=== PATIENT | female | born 1955 | race Caucasian/White ===

== ENCOUNTER 2020-02-26 17:58 | Emergency (ER) | payer MEDICARE, MEDICAID, SELFPAY ==
--- NOTE | 2020-02-26 | ECG_ITS ---
Test Reason : WADE Blood Pressure : / mmHG Vent. Rate : 063 BPM Atrial Rate : 063 BPM P-R Int : 176 ms QRS Dur : 072 ms QT Int : 420 ms P-R-T Axes : 000 065 -26 degrees QTc Int : 429 ms Poor data quality Sinus rhythm Low voltage QRS RSR' or QR pattern in V1 suggests right ventricular conduction delay ST depression in Anterior leads Abnormal ECG When compared with ECG of 29-AUG-2006 08:35, Significant changes have occurred Referred By: Ninfa Betancur Electronically Signed By:WALESKA DEVLIN MD
[2020-02-26 18:06] VITALS: BP 80/50; PULSE 79; RESP 24; TEMP 35.7; O2SAT 98; BMI 48.2
[2020-02-26 18:40] VITALS: BP 88/38; PULSE 61; RESP 14; O2SAT 97
[2020-02-26] MEDS: 0.9 % Sodium Chloride 1,000 ML 999 ML IVCONT (18:45)
[2020-02-26 18:52] VITALS: BP 92/53
--- NOTE | 2020-02-26 18:58 | CT_ITS ---
EXAMINATION: CT ABDOMEN AND PELVIS WITHOUT CONTRAST CLINICAL INFORMATION: Back pain with leg weakness. COMPARISON: CT abdomen and pelvis December 2017. Abdominal ultrasound March 2018. TECHNIQUE: Multidetector volumetric imaging was performed from the superior aspect of the liver through the pubic symphysis. Sagittal and coronal reformatted images were obtained on the technologist's workstation. This CT examination was performed using dose optimization techniques as appropriate, variously including the following: *Automated exposure control. *Adjustment of mA and/or kV according to patient size (this includes techniques or standardized protocols for targeted exams where dose is matched to indication/reason for exam; i.e. extremities or head). *Use of iterative reconstruction technique. DLP: 1358 mGy-cm FINDINGS: LUNG BASES: Minimal scarring lingula, unchanged. LIVER, GALLBLADDER, AND BILIARY TREE: The liver is normal in size, shape, and attenuation. No focal hepatic lesion or biliary ductal dilatation is present. Status post cholecystectomy. PANCREAS: Unremarkable. SPLEEN: Unremarkable. ADRENAL GLANDS: Unremarkable. KIDNEYS AND URETERS: The kidneys are normal in size, shape, and attenuation. No hydronephrosis, hydroureter, or calculi seen. No perinephric stranding. BLADDER: Unremarkable. GASTROINTESTINAL TRACT: Appendix normal. Scattered diverticulosis without diverticulitis. Small bowel normal. Stomach normal. ABDOMINAL WALL: There is an anterior abdominal wall hernia at the right of midline as before containing fat and loops of small bowel which are not obstructed, unchanged compared to prior. The defect measures 4.5 cm transverse and 4 cm craniocaudal. Additionally, there is a localized collection of fluid along the distal anterior abdominal wall just distal to level of the hernia, unchanged compared to prior, measuring 9.5 cm transverse, up to 3.3 cm AP and extending 9.2 cm craniocaudal. LYMPH NODES: Normal. VASCULAR: Moderate calcific atherosclerotic disease, unchanged. PELVIC VISCERA: Unremarkable. OSSEOUS STRUCTURES: Stable moderate multilevel spondylosis of the lumbosacral spine with degenerative grade 1 anterolisthesis at L4-L5 where there is mild degenerative disc disease and severe bilateral facet arthrosis at L4-L5 as well as L3-L4. CT/CT abdomen pelvis wo con IMPRESSION: 1. No change compared with December 2017. 2. Stable moderate multilevel spondylosis of lumbosacral spine. 3. Status post cholecystectomy. 4. Stable anterior abdominal wall hernia containing fat and non-obstructed small bowel loops. 5. Stable fluid collection embedded within the distal anterior abdominal wall just distal to the level of the hernia.
--- NOTE | 2020-02-26 18:58 | ED_ITS ---
HPI - Back Pain/Injury General Chief Complaint: Back Pain/Injury Stated Complaint: BACK PAIN Time Seen by Provider: 02/26/20 19:09 Source: patient Mode of arrival: ambulatory Limitations: no limitations History of Present Illness HPI Narrative: 64-year-old female with past medical history of psoriasis, ventral hernia, fibromyalgia, obstructive sleep apnea uses CPAP, urinary stress incontinence, bilateral osteoarthritis of the knees, hyperlipidemia, and hypertension presents with 01/06 lower back pain that radiates into the pelvis, groin, and left leg. She states that she has been unable to sleep for the past several days. She is short of breath, and states to feel dizzy. She denies chest pain and pressure, palpitations, abdominal distention, dysuria, hematuria, bowel and bladder incontinence, symptoms indicating cauda equina, increased edema, fevers and chills. Related Data Home Medications Medication Instructions Recorded Confirmed atenolol 50 mg tablet 25 mg PO BID 01/17/20 02/26/20 atorvastatin 40 mg tablet 40 mg PO DAILY 01/17/20 02/26/20 cetirizine 10 mg tablet 10 mg PO DAILY PRN 01/17/20 02/26/20 cholecalciferol (vitamin D3) 1,250 1,250 mcg PO 2XW 01/17/20 02/26/20 mcg (50,000 unit) capsule hydrochlorothiazide 25 mg tablet 25 mg PO DAILY 01/17/20 02/26/20 lisinopril 40 mg tablet 40 mg PO DAILY 01/17/20 02/26/20 aspirin 81 mg PO DAILY 02/26/20 02/26/20 Previous Rx's Medication Instructions Recorded ibuprofen 800 mg tablet 800 mg PO .qd PRN #30 tab 01/17/20 Allergies Allergy/AdvReac Type Severity Reaction Status Date / Time acetaminophen [Tylenol] AdvReac Unknown diarrhea Verified 01/17/20 13:02 Cortisone AdvReac Unknown leg turned Verified 01/17/20 13:02 black naproxen [From NAPROSYN] AdvReac Unknown DEPRESSION , Verified 01/17/20 13:02 severe depression, extreme fatgue and drepression Review of Systems Review of Systems: Constitutional: No Weight loss, No Fever, No Chills, ENT/Mouth: No Hearing loss, No Ear Pain, No Nasal Congestion, No Sinus Pain, No Hoarseness, No sore throat, No Rhinorrhea, No Swallowing Difficulty Cardiovascular: No Chest Pain, Positive SOB Respiratory: No Cough, No Dyspnea Gastrointestinal: No Nausea, No Vomiting, No Diarrhea, positive abdominal Pain, No Hematochezia, No Melena Genitourinary: No Dysuria, No Urinary Frequency, No Hematuria, No Urinary Incontinence, Musculoskeletal: positive back pain, positive left leg pain Skin: No Skin Lesions, No rash Neuro: No Weakness, No Numbness, No Paresthesias, no loss of bowel or bladder incontinence, no saddle anesthesia Yes all other systems are reviewed and are negative [facility] Past Medical History Attestation statement: The following information was validated with the patient. Medical History Adenomyosis of uterus Environmental and seasonal allergies Essential hypertension Fibromyalgia Hyperlipidemia CHAS on CPAP Osteoarthritis of knees, bilateral Psoriasis Urinary, incontinence, stress female Ventral hernia Surgical History History of laparoscopic cholecystectomy History of total abdominal hysterectomy and bilateral salpingo-oophorectomy Torn ACL Family History Family History Father CAD (coronary artery disease) CVD (cardiovascular disease) Stroke Mother History of CVA (cerebrovascular accident) Brother No problems noted. Brother No problems noted. Son No problems noted. Social History Social History Alcohol intake: never Smoking Status: Current some day smoker Smoked in Last 30 Days: No Use of substances other than those prescribed or required for medical reasons: No Advance Directives: No Advance Directives Information Provided: Yes Physical Exam Vital Signs: Vital Signs: Last Vital Signs Temp 98.4 F 02/27/20 00:00 Pulse 100 02/27/20 04:32 Resp 18 02/27/20 04:32 BP 139/89 02/27/20 04:32 Pulse Ox 96 02/27/20 04:32 Body Mass Index 48.2 Appearance: Alert. Oriented X3. moderate distress. tachypneic, hypotensive Eyes: Pupils equal, round and reactive to light. ENT: Pharynx normal. Neck: Normal inspection. Neck supple. CVS: Normal heart rate and rhythm. Pulses normal. Respiratory: No respiratory distress. Breath sounds normal. Abdomen: Soft and nontender. morbidly obese Skin: Skin warm and dry. Normal skin color. Normal skin turgor. Extremities: No lower extremity edema. Neuro: No motor deficit. No sensory deficit. Course Course Course Narrative: 64-year-old female presents with lower back pain, groin pain and sciatica, has been unable to sleep for the past several days. upon pres entation to the emergency department she is hypotensive, tachypneic, and has a temperature of 96.2?. Repeat temperature at bedside 98.3 oral, and respiration rate returned to 18 after rest. patient does have a morbidly obese body habitus and was physically exerting herself And is in 10/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 Troponin is 10.1, we will repeat this. Urinalysis is negative for nitrites however has leukocyte esterase, white blood cells, and bacteria. We will treat with ceftriaxone, and order lactic acid and cultures. plan of care is for Case Management, certified social workers in health care and physical therapy. patient does not feel like she can manage herself at home. MDM - Back Pain/Injury Differential Diagnosis Differential diagnosis: Likely lumbar radiculopathy, sciatica, strain of lumbar region, renal colic, pyelonephritis, thoracic back pain, AAA and discitis Medical Records Attestation: I reviewed the patient's medical records. Lab Data Attestation: I reviewed the patient's lab results. Result diagrams: 02/26/20 18:55 02/26/20 18:55 Labs: Lab Results 02/26/20 02/26/20 02/26/20 Range/Units 18:55 18:55 18:55 WBC 10.4 (4.8-10.8) X10*3/uL RBC 4.48 (4.20-5.50) X10*6/uL Hgb 13.5 (12.0-16.0) g/dl Hct 40.2 (37-47) % MCV 89.7 (80-98) fL MCH 30.1 (27.0-33.0) pg MCHC 33.6 (31.0-35.0) g/dl RDW 13.5 (11.0-16.0) % Plt Count 214 (160-400) X10*3/uL MPV 9.5 (9.4-12.3) fL Immature Gran % (Auto) 0.2 (0.0-0.4) % Neut % (Auto) 48.7 (45-73) % Lymph % (Auto) 39.8 (20-40) % [place] % (Auto) 7.7 (2-11) % Eos % (Auto) 3.1 (0-4) % Baso % (Auto) 0.5 (0-2) % Lymph # (Auto) 4.2 (1.2-4.9) X10*3/uL [place] # (Auto) 0.8 (0.1-1.2) X10*3/uL Eos # (Auto) 0.3 (0.0-0.4) X10*3/uL Baso # (Auto) 0.1 (0.0-0.2) X10*3/uL Abs Immat Gran (auto) 0.02 (0.00-0.03) X10*3/uL Absolute Neuts (auto) 5.1 (2.0-8.3) X10*3/uL Absolute Nucleated RBC 0.000 (0.0-0.012) X10*3/uL Nucleated RBC % (auto) 0.0 (0.0-0.2) /100WBC Hold Blue Top SEE NOTE Sodium 136 (135-145) mmol/L Potassium 3.7 (3.3-5.1) mmol/l Chloride 98 (96-108) mmol/L Carbon Dioxide 25 (22-29) mmol/L Anion Gap 17 (12-20) BUN 18 H (9-16) mg/dL Creatinine 1.10 (0.5-1.4) mg/dL Estim Creat Clear Calc 70.8 Estimated GFR 50 Random Glucose 99 (60-115) mg/dL Lactic Acid (0.5-2.0) mmol/L Calcium 8.9 (8.4-10.2) mg/dL Total Bilirubin 0.8 (0.0-1.0) mg/dL AST 20 (5-31) U/L ALT 18 (0-31) U/L Alkaline Phosphatase 85 (39-117) U/L Troponin I High Sens (<3.5-17.0) ng/L B-Natriuretic Peptide (<100) pg/mL Total Protein 6.5 (6.5-8.0) g/dL Albumin 3.6 (3.5-5.0) g/dL Urine Color Urine Appearance Urine pH (5.0-8.0) Ur Specific [place] (1.005-1.025) Urine Protein (NEG-TRACE) MG/DL Urine Glucose (UA) (NEG) MG/DL Urine Ketones (NEG) MG/DL Urine Blood (NEG) Urine Nitrite (NEG) Ur Leukocyte Esterase (NEG) Urine RBC (0) /HPF Urine WBC (0-4) /HPF Ur Squamous Epith Cells /LPF Urine Bacteria /LPF 02/26/20 02/26/20 02/27/20 Range/Units 18:55 21:07 03:01 WBC (4.8-10.8) X10*3/uL RBC (4.20-5.50) X10*6/uL Hgb (12.0-16.0) g/dl Hct (37-47) % MCV (80-98) fL MCH (27.0-33.0) pg MCHC (31.0-35.0) g/dl RDW (11.0-16.0) % Plt Count (160-400) X10*3/uL MPV (9.4-12.3) fL Immature Gran % (Auto) (0.0-0.4) % Neut % (Auto) (45-73) % Lymph % (Auto) (20-40) % [place] % (Auto) (2-11) % Eos % (Auto) (0-4) % Baso % (Auto) (0-2) % Lymph # (Auto) (1.2-4.9) X10*3/uL [place] # (Auto) (0.1-1.2) X10*3/uL Eos # (Auto) (0.0-0.4) X10*3/uL Baso # (Auto) (0.0-0.2) X10*3/uL Abs Immat Gran (auto) (0.00-0.03) X10*3/uL Absolute Neuts (auto) (2.0-8.3) X10*3/uL Absolute Nucleated RBC (0.0-0.012) X10*3/uL Nucleated RBC % (auto) (0.0-0.2) /100WBC Hold Blue Top Sodium (135-145) mmol/L Potassium (3.3-5.1) mmol/l Chloride (96-108) mmol/L Carbon Dioxide (22-29) mmol/L Anion Gap (12-20) BUN (9-16) mg/dL Creatinine (0.5-1.4) mg/dL Estim Creat Clear Calc Estimated GFR Random Glucose (60-115) mg/dL Lactic Acid (0.5-2.0) mmol/L Calcium (8.4-10.2) mg/dL Total Bilirubin (0.0-1.0) mg/dL AST (5-31) U/L ALT (0-31) U/L Alkaline Phosphatase (39-117) U/L Troponin I High Sens 10.1 7.6 (<3.5-17.0) ng/L B-Natriuretic Peptide 50 (<100) pg/mL Total Protein (6.5-8.0) g/dL Albumin (3.5-5.0) g/dL Urine Color YELLOW Urine Appearance CLEAR Urine pH 5.5 (5.0-8.0) Ur Specific [place] 1.020 (1.005-1.025) Urine Protein NEG (NEG-TRACE) MG/DL Urine Glucose (UA) NEG (NEG) MG/DL Urine Ketones NEG (NEG) MG/DL Urine Blood NEG (NEG) Urine Nitrite NEG (NEG) Ur Leukocyte Esterase TRACE H (NEG) Urine RBC 0-2 (0) /HPF Urine WBC 5-9 H (0-4) /HPF Ur Squamous Epith Cells 1+ /LPF Urine Bacteria 3+ /LPF 02/27/20 Range/Units 03:01 WBC (4.8-10.8) X10*3/uL RBC (4.20-5.50) X10*6/uL Hgb (12.0-16.0) g/dl Hct (37-47) % MCV (80-98) fL MCH (27.0-33.0) pg MCHC (31.0-35.0) g/dl RDW (11.0-16.0) % Plt Count (160-400) X10*3/uL MPV (9.4-12.3) fL Immature Gran % (Auto) (0.0-0.4) % Neut % (Auto) (45-73) % Lymph % (Auto) (20-40) % [place] % (Auto) (2-11) % Eos % (Auto) (0-4) % Baso % (Auto) (0-2) % Lymph # (Auto) (1.2-4.9) X10*3/uL [place] # (Auto) (0.1-1.2) X10*3/uL Eos # (Auto) (0.0-0.4) X10*3/uL Baso # (Auto) (0.0-0.2) X10*3/uL Abs Immat Gran (auto) (0.00-0.03) X10*3/uL Absolute Neuts (auto) (2.0-8.3) X10*3/uL Absolute Nucleated RBC (0.0-0.012) X10*3/uL Nucleated RBC % (auto) (0.0-0.2) /100WBC Hold Blue Top Sodium (135-145) mmol/L Potassium (3.3-5.1) mmol/l Chloride (96-108) mmol/L Carbon Dioxide (22-29) mmol/L Anion Gap (12-20) BUN (9-16) mg/dL Creatinine (0.5-1.4) mg/dL Estim Creat Clear Calc Estimated GFR Random Glucose (60-115) mg/dL Lactic Acid 1.1 (0.5-2.0) mmol/L Calcium (8.4-10.2) mg/dL Total Bilirubin (0.0-1.0) mg/dL AST (5-31) U/L ALT (0-31) U/L Alkaline Phosphatase (39-117) U/L Troponin I High Sens (<3.5-17.0) ng/L B-Natriuretic Peptide (<100) pg/mL Total Protein (6.5-8.0) g/dL Albumin (3.5-5.0) g/dL Urine Color Urine Appearance Urine pH (5.0-8.0) Ur Specific [place] (1.005-1.025) Urine Protein (NEG-TRACE) MG/DL Urine Glucose (UA) (NEG) MG/DL Urine Ketones (NEG) MG/DL Urine Blood (NEG) Urine Nitrite (NEG) Ur Leukocyte Esterase (NEG) Urine RBC (0) /HPF Urine WBC (0-4) /HPF Ur Squamous Epith Cells /LPF Urine Bacteria /LPF Imaging Data CT scan - abdomen: Attestation: I personally reviewed and interpreted this imaging study as follows: Radiologist's impression: FINDINGS: LUNG BASES: Minimal scarring lingula, unchanged. LIVER, GALLBLADDER, AND BILIARY TREE: The liver is normal in size, shape, and attenuation. No focal hepatic lesion or biliary ductal dilatation is present. Status post cholecystectomy. PANCREAS: Unremarkable. SPLEEN: Unremarkable. ADRENAL GLANDS: Unremarkable. KIDNEYS AND URETERS: The kidneys are normal in size, shape, and attenuation. No hydronephrosis, hydroureter, or calculi seen. No perinephric stranding. BLADDER: Unremarkable. GASTROINTESTINAL TRACT: Appendix normal. Scattered diverticulosis without diverticulitis. Small bowel normal. Stomach normal. ABDOMINAL WALL: There is an anterior abdominal wall hernia at the right of midline as before containing fat and loops of small bowel which are not obstructed, unchanged compared to prior. The defect measures 4.5 cm transverse and 4 cm craniocaudal. Additionally, there is a localized collection of fluid along the distal anterior abdominal wall just distal to level of the hernia, unchanged compared to prior, measuring 9.5 cm transverse, up to 3.3 cm AP and extending 9.2 cm craniocaudal. LYMPH NODES: Normal. VASCULAR: Moderate calcific atherosclerotic disease, unchanged. PELVIC VISCERA: Unremarkable. OSSEOUS STRUCTURES: Stable moderate multilevel spondylosis of the lumbosacral spine with degenerative grade 1 anterolisthesis at L4-L5 where there is mild degenerative disc disease and severe bilateral facet arthrosis at L4-L5 as well as L3-L4. CT/CT abdomen pelvis wo con IMPRESSION: 1. No change compared with December 2017. 2. Stable moderate multilevel spondylosis of lumbosacral spine. 3. Status post cholecystectomy. 4. Stable anterior abdominal wall hernia containing fat and non-obstructed small bowel loops. 5. Stable fluid collection embedded within the distal anterior abdominal wall just distal to the level of the hernia. ECG Data Attestation: I personally reviewed and interpreted this ECG as follows: ECG interpretation date: 02/26/20 ECG interpretation time: 19:30 Prior ECG tracings: not available for review Interpretation: ventricular rate 63, p.r. interval 176, QRS duration 72, QT 420, QTC 429 sinus rhythm with fusion complexes low-voltage QRS, cannot rule out anterior infarct age undetermined, significant changes have occurred since August 292006. Critical Care Time Critical Care Time Critical Care Time: Yes Total Critical Care Time: 45 Attestation: I have personally provided critical care time exclusive of time spent on separately billable procedures. Time includes review of laboratory data, radiology results, discussion with consultants, and monitoring for potential decompensation. Interventions were performed as documented. Discharge Plan Discharge Prescriptions: No Action aspirin 81 mg Tablet 81 mg PO DAILY RF: 0 atenolol 50 mg tablet 25 mg PO BID RF: 0 hydrochlorothiazide 25 mg tablet 25 mg PO DAILY RF: 0 atorvastatin 40 mg tablet 40 mg PO DAILY RF: 0 lisinopril 40 mg tablet 40 mg PO DAILY RF: 0 cetirizine 10 mg tablet 10 mg PO DAILY PRN (Reason: Cold Symptoms) RF: 0 cholecalciferol (vitamin D3) 1,250 mcg (50,000 unit) capsule 1,250 mcg PO 2XW RF: 0 ibuprofen 800 mg tablet 800 mg PO .qd PRN (Reason: pain) Qty: 30 RF: 3
[2020-02-26 19:02] LABS: MANUAL DIFF FLAG NO
[2020-02-26 19:04] LABS: Basophils Absolute Auto 0.1 X10*3/uL (0.0-0.2); Basophils Percent Auto 0.5 % (0-2); Eosinophils Absolute Auto 0.3 X10*3/uL (0.0-0.4); Eosinophils Percent Auto 3.1 % (0-4); Hematocrit 40.2 % (37-47); Hemoglobin 13.5 g/dl (12.0-16.0); Imm Gran Abs Auto 0.02 X10*3/uL (0.00-0.03); Imm Gran Pct Auto 0.2 % (0.0-0.4); Lymphocytes Absolute Auto 4.2 X10*3/uL (1.2-4.9); Lymphocytes Percent Auto 39.8 % (20-40); Mean Corpuscular HGB Conc 33.6 g/dl (31.0-35.0); Mean Corpuscular Hemoglobin 30.1 pg (27.0-33.0); Mean Corpuscular Volume 89.7 fL (80-98); Mean Platelet Volume 9.5 fL (9.4-12.3); Monocytes Absolute Auto 0.8 X10*3/uL (0.1-1.2); Monocytes Percent Auto 7.7 % (2-11); Neutrophils Absolute Auto 5.1 X10*3/uL (2.0-8.3); Neutrophils Percent Auto 48.7 % (45-73); Platelet Count 214 X10*3/uL (160-400); Red Blood Count 4.48 X10*6/uL (4.20-5.50); Red Cell Distribution Width 13.5 % (11.0-16.0); White Blood Count 10.4 X10*3/uL (4.8-10.8)
[2020-02-26 19:29] LABS: Alanine Aminotransferase 18 U/L (0-31); Albumin Level 3.6 g/dL (3.5-5.0); Alkaline Phosphatase 85 U/L (39-117); Anion Gap 17 (12-20); Aspartate Amino Transferase 20 U/L (5-31); Bilirubin Total 0.8 mg/dL (0.0-1.0); Blood Urea Nitrogen 18 mg/dL (9-16); Calcium 8.9 mg/dL (8.4-10.2); Carbon Dioxide 25 mmol/L (22-29); Chloride 98 mmol/L (96-108); Creatinine Clr Calc Pharmacy 70.8; Estimated Glomerular Filt Rate 50; Glucose Random 99 mg/dL (60-115); Potassium 3.7 mmol/l (3.3-5.1); Sodium 136 mmol/L (135-145); Total Protein 6.5 g/dL (6.5-8.0)
[2020-02-26 19:31] LABS: B Type Natriuretic Peptide 50 pg/mL (<100); Troponin-I High Sensitivity 10.1 ng/L (<3.5-17.0)
[2020-02-26] MEDS: Ketorolac Tromethamine 15 MG/ML VIAL IVPUSH (19:59)
[2020-02-26 21:07] VITALS: BP 110/45; PULSE 74; RESP 22; TEMP 37.2; O2SAT 98
[2020-02-26 21:19] LABS: Glucose Urine UA NEG (NEG); Leukocyte Esterase Urine TRACE (NEG); Nitrite Urine NEG (NEG); PH 5.5 (5.0-8.0); Urine Blood NEG (NEG); Urine Ketones NEG (NEG); Urine Protein NEG (NEG-TRACE)
[2020-02-26 21:20] LABS: Appearance Urine CLEAR; Color Urine YELLOW
[2020-02-26] MEDS: oxyCODONE HCl Immed Release 5 MG TABLET PO (22:00)
--- NOTE | 2020-02-26 22:36 | PC.NURSE ---
Pt continues to report back pain w/ little relief, offered case management, pt currently discussing w/ son.
[2020-02-26 22:37] VITALS: BP 107/76; PULSE 87; RESP 16; O2SAT 99
[2020-02-26 22:44] LABS: Bacteria Urine 3+ /LPF; RBC Urine 0-2 /HPF (0); Squamous Epithelial Cell Urine 1+ /LPF
[2020-02-26] MEDS: Cyclobenzaprine HCl 10 MG TABLET PO (23:09)
[2020-02-27] VITALS: BP 99/57; PULSE 82; RESP 19; TEMP 36.9; O2SAT 96
[2020-02-27 03:27] LABS: Lactic Acid 1.1 mmol/L (0.5-2.0)
[2020-02-27] MEDS: cefTRIAXone sodium 1 GM in 0.9 % Sodium Chloride 50 ML IV (03:31)
[2020-02-27] MEDS: 0.9 % Sodium Chloride 1,000 ML 999 ML IVCONT (03:31)
[2020-02-27] MEDS: oxyCODONE HCl Immed Release 5 MG TABLET PO (03:31)
[2020-02-27 03:38] LABS: Troponin-I High Sensitivity 7.6 ng/L (<3.5-17.0)
--- NOTE | 2020-02-27 03:51 | PC.NURSE ---
pt able to stand and pivot to commode on her own. pt still experiencing lower back pain. pt transferred to a hospital bed for comfort.
[2020-02-27 04:32] VITALS: BP 139/89; PULSE 100; RESP 18; O2SAT 96
--- NOTE | 2020-02-27 07:35 | PC.NURSE ---
pt voided in the commode earlier, physical therapy at the bedside.
[2020-02-27 07:51] VITALS: BP 94/54; PULSE 85; RESP 17; TEMP 36.7; O2SAT 95
[2020-02-27 08:24] VITALS: BP 94/54; PULSE 85; O2SAT 95
[2020-02-27 08:26] LABS: COVID-19 Test Negative (Negative); IDNOW Serial# 9DD0AD1C
--- NOTE | 2020-02-27 09:12 | MHC.CM.ED ---
Received case management consult overnight. Patient came to the ER due to back pain. Physical therapy eval completed. Home therapy is recommended. Met with patient in regards to discharge planning. Patient lives with her son, ambualtes with a walker and has a CPAP through [employer]. PCP verified. Patient has a copy of her HCP at her PCP's office and will attempt to obtain a copy. Referral to [facility] made at patient's request. Patient's son will transport her home. Continue to monitor for d/c needs.
[2020-02-27 09:42] VITALS: BP 116/77; PULSE 90; RESP 17; TEMP 36.8; O2SAT 94
[2020-02-27 09:50] VITALS: BP 116/77; PULSE 90
[2020-02-27] MEDS: atenoloL 50 MG TABLET 25 MG PO (09:50)
[2020-02-27] MEDS: hydroCHLOROthiazide 25 MG TABLET PO (09:52)
[2020-02-27] MEDS: Atorvastatin Calcium 40 MG TABLET PO (09:52)
[2020-02-27] MEDS: traMADoL HCL 50 MG TABLET PO (09:52)
[2020-02-27] MEDS: Nitrofurantoin Monohyd/M-Cryst 100 MG CAPSULE PO (09:53)
== END 2020-02-27 10:15 | disposition home or self-care (01) ==
PROVIDERS: Internal Medicine; Nurse Practitioner Family; Emergency Provider Emergency Medicine; PCP Internal Medicine
DX: M54.5 Low back pain (principal); M79.605 Pain in left leg; M79.7 Fibromyalgia; R10.2 Pelvic and perineal pain; R42 Dizziness and giddiness; Z20.828 Contact with and (suspected) exposure to other viral communicable diseases; Z79.899 Other long term (current) drug therapy; F17.200 Nicotine dependence, unspecified, uncomplicated; Z71.6 Tobacco abuse counseling
CPT/HCPCS: 36415; 74176; 80053; 81001; 83605; 83880; 84484; 85025; 87040; 87086; 87088; 87186; 87635; 93005; 96361; 96365; 96375; 97161; 99285; 99291; J0696; J1885

== ENCOUNTER 2020-02-27 11:12 | Emergency (ER) | payer MEDICARE, MEDICAID, SELFPAY ==
--- NOTE | 2020-02-27 11:19 | XR_ITS ---
EXAMINATION: XR HAND WRIST, LEFT CLINICAL INFORMATION: Fall, trauma, pain COMPARISON: None TECHNIQUE: The left hand and wrist are imaged together and 3 large [id number] images. A navicular view of the left wrist is also included for a total of 4 views. FINDINGS: There is a transverse hairline fracture distal radial metaphysis. No significant angulation or displacement. No dislocation. The ulnar variance is neutral. The distal ulnar and carpal and hand appear intact. There are degenerative changes first carpometacarpal joint and first MCP joint. XR/XR hand wrist LT IMPRESSION: Transverse fracture distal radial metaphysis. No dislocation.
--- NOTE | 2020-02-27 11:25 | ED.FALL ---
HPI - Fall General Chief Complaint: Fall <Kathy Mariee NP - Last Filed: 02/27/20 17:10> Stated Complaint: weakness,fall,left hand lac,d/c this am <Kathy Mariee NP - Last Filed: 02/27/20 17:10> Time Seen by Provider: 02/27/20 11:14 <Kathy Mariee NP - Last Filed: 02/27/20 17:10> Source: EMS <Kathy Mariee NP - Last Filed: 02/27/20 17:10> Mode of arrival: EMS <Kathy Mariee NP - Last Filed: 02/27/20 17:10> Limitations: no limitations <Kathy Mariee NP - Last Filed: 02/27/20 17:10> History of Present Illness HPI Narrative: 64-year-old female with a past medical history of chronic back pain, fibromyalgia, high cholesterol, obstructive sleep apnea, hypertension, osteoarthritis here with fall. Of note the patient was seen here last evening and discharged home after being seen for acute on chronic low back pain and UTI. She was seen by Physical therapy and was cleared for discharge. Patient tells me she got to her house and tried to walk up the steps to her door and due to the pain she fell off balance and fell catching herself with her left hand. She tells me when she lifts her legs she feels pain in her back. She denies hitting her head or loss of consciousness. She tells me that her left arm caught her. She does have a laceration to the left arm. Her last tetanus was 2 years ago. No chest pain, abdominal pain, neck pain, headache. <Kathy Mariee NP - Last Filed: 02/27/20 17:10> MD complaint: fall <MYRA Sarmiento Last Filed: 02/27/20 17:10> Onset (ago): minute(s) <MYRA Sarmiento Last Filed: 02/27/20 17:10> Fall from: standing <Kathy Mariee NP - Last Filed: 02/27/20 17:10> Fall witnessed: no <Kathy Mariee NP - Last Filed: 02/27/20 17:10> Place fall occurred: home <Kathy Mariee NP - Last Filed: 02/27/20 17:10> Loss of consciousness: none <Kathy Mariee NP - Last Filed: 02/27/20 17:10> Prolonged down time: no <Kathy Mariee NP - Last Filed: 02/27/20 17:10> Symptoms prior to fall: none <Kathy Mariee NP - Last Filed: 02/27/20 17:10> Context: other ( Lost balance) <Kathy Mariee NP - Last Filed: 02/27/20 17:10> Location of injury - extremities: left: hand ( wrist) <Kathy Mariee NP - Last Filed: 02/27/20 17:10> Severity: mild <Kathy Mariee NP - Last Filed: 02/27/20 17:10> Associated symptoms (after fall): denies <Kathy Mariee NP - Last Filed: 02/27/20 17:10> Related Data Home Medications: Home Medications Medication Instructions Recorded Confirmed atenolol 50 mg tablet 25 mg PO BID 01/17/20 02/27/20 atorvastatin 40 mg tablet 40 mg PO DAILY 01/17/20 02/27/20 cetirizine 10 mg tablet 10 mg PO DAILY PRN 01/17/20 02/27/20 cholecalciferol (vitamin D3) 1,250 1,250 mcg PO 2XW 01/17/20 02/27/20 mcg (50,000 unit) capsule hydrochlorothiazide 25 mg tablet 25 mg PO DAILY 01/17/20 02/27/20 lisinopril 40 mg tablet 40 mg PO DAILY 01/17/20 02/27/20 aspirin 81 mg PO DAILY 02/26/20 02/27/20 ibuprofen 800 mg PO DAILY PRN 02/27/20 02/27/20 Previous Rx's Medication Instructions Recorded cephalexin 500 mg PO BID #14 cap 02/27/20 cyclobenzaprine 5 mg PO TID PRN #10 tab 02/27/20 <Kathy Mariee NP - Last Filed: 02/27/20 17:10> Allergies/Adverse Reactions: Allergies Allergy/AdvReac Type Severity Reaction Status Date / Time acetaminophen [Tylenol] AdvReac Unknown diarrhea Verified 01/17/20 13:02 Cortisone AdvReac Unknown leg turned Verified 01/17/20 13:02 black naproxen [From NAPROSYN] AdvReac Unknown DEPRESSION , Verified 01/17/20 13:02 severe depression, extreme fatgue and drepression <Kathy Mariee NP - Last Filed: 02/27/20 17:10> Review of Systems Review of Systems: Yes all other systems are reviewed and are negative <Kathy Mariee NP - Last Filed: 02/27/20 17:10> Constitutional: Constitutional: Reports no additional constitutional complaints, Denies body ache(s), Denies chills, Denies fever(s), Denies headache(s) and Denies weakness <Kathy Mariee NP - Last Filed: 02/27/20 17:10> Eyes: Eyes: Reports no additional eye complaints and Denies change in vision <Kathy Mariee NP - Last Filed: 02/27/20 17:10> ENT: Reports system reviewed and no additional complaints, except as documented, Denies dizziness, Denies headache(s), Denies nasal congestion, Denies nasal discharge and Denies neck pain <Kathy Mariee NP - Last Filed: 02/27/20 17:10> Cardiovascular: Cardiovascular: Reports no additional cardiovascular complaints, Denies chest pain, Denies leg edema and Denies dyspnea <Kathy Mariee NP - Last Filed: 02/27/20 17:10> Respiratory: Respiratory: Reports no additional respiratory complaints, Denies cough and Denies dyspnea <Kathy Mariee NP - Last Filed: 02/27/20 17:10> Gastrointestinal: Gastrointestinal: Reports no additional gastrointestinal complaints, Denies abdominal pain, Denies diarrhea, Denies nausea and Denies vomiting <Kathy Mariee NP - Last Filed: 02/27/20 17:10> Genitourinary: Genitourinary: Reports no additional female genitourinary complaints and Denies urinary incontinence <Kathy Mariee NP - Last Filed: 02/27/20 17:10> Musculoskeletal: Musculoskeletal: Reports no additional musculoskeletal complaints, Denies back pain, Reports arthralgias, Denies joint swelling, Denies neck pain, Denies numbness and Denies tingling <Kathy Mariee NP - Last Filed: 02/27/20 17:10> Integumentary/Breasts: Skin/Breast: Reports system reviewed and no additional complaints, except as docu and Denies rash <Kathy Mariee NP - Last Filed: 02/27/20 17:10> Neurologic: Reports system reviewed and no additional complaints, except as documented, Denies Abnormal speech present, Denies dizziness, Denies headache(s), Denies numbness, Denies tingling and Denies weakness <Kathy Mariee NP - Last Filed: 02/27/20 17:10> PMFSH Past Medical History Attestation statement: The following information was validated with the patient. <Kathy Mariee NP - Last Filed: 02/27/20 17:10> Source: old records reviewed and nursing notes reviewed <Kathy Mariee NP - Last Filed: 02/27/20 17:10> Medical History: Medical History Adenomyosis of uterus Environmental and seasonal allergies Essential hypertension Fibromyalgia Hyperlipidemia CHAS on CPAP Osteoarthritis of knees, bilateral Psoriasis Urinary, incontinence, stress female Ventral hernia <Kathy Mariee NP - Last Filed: 02/27/20 17:10> Surgical History: Surgical History History of laparoscopic cholecystectomy History of total abdominal hysterectomy and bilateral salpingo-oophorectomy Torn ACL <Kathy Mariee NP - Last Filed: 02/27/20 17:10> Family History Family History: Family History Father CAD (coronary artery disease) CVD (cardiovascular disease) Stroke Mother History of CVA (cerebrovascular accident) Brother No problems noted. Brother No problems noted. Son No problems noted. <Kathy Mariee NP - Last Filed: 02/27/20 17:10> Social History Social History: Social History Alcohol intake: never Smoking Status: Former smoker Use of substances other than those prescribed or required for medical reasons: No Advance Directives: No Advance Directives Information Provided: Yes <Kathy Mariee NP - Last Filed: 02/27/20 17:10> Physical Exam Vital Signs: Vital Signs: Last Vital Signs Temp 98.4 F 02/27/20 16:04 Pulse 63 02/27/20 16:04 Resp 18 02/28/20 02:00 BP 96/48 L 02/27/20 16:39 Pulse Ox 94 02/27/20 16:04 Body Mass Index 48.2 <Kathy Mariee NP - Last Filed: 02/27/20 17:10> Vital Signs: Last Vital Signs Temp 98.4 F 02/27/20 16:04 Pulse 63 02/27/20 16:04 Resp 18 02/28/20 02:00 BP 96/48 L 02/27/20 16:39 Pulse Ox 94 02/27/20 16:04 Body Mass Index 48.2 <Carmen Palacios DO - Last Filed: 02/28/20 06:45> Const: General: cooperative, healthy appearing, comfortable and no acute distress <Kathy Mariee NP - Last Filed: 02/27/20 17:10> Orientation/consciousness: patient oriented x3 <Kathy Mariee NP - Last Filed: 02/27/20 17:10> Limitations: no limitations <Kathy Mariee NP - Last Filed: 02/27/20 17:10> HENMT: Head: Yes normal to inspection <Kathy Mariee NP - Last Filed: 02/27/20 17:10> Ears: hearing grossly normal bilaterally <Kathy Mariee NP - Last Filed: 02/27/20 17:10> General nose exam: Normal external nose present <Kathy Mariee NP - Last Filed: 02/27/20 17:10> Face and sinus: Yes normal facial exam <Kathy Mariee NP - Last Filed: 02/27/20 17:10> Mouth: Normal oral and palatal mucosa present <Kathy Mariee NP - Last Filed: 02/27/20 17:10> Throat: Yes posterior oropharynx normal <Kathy Mariee NP - Last Filed: 02/27/20 17:10> Eyes: General: appearance normal, both eyes and all related structures <Kathy Mariee NP - Last Filed: 02/27/20 17:10> Pupils: Equal, round and reactive pupils present <Kathy Mariee BREWERY TECHNICIAN - Last Filed: 02/27/20 17:10> Neck: Neck: Yes normal visual inspection <Kathy Mariee NP - Last Filed: 02/27/20 17:10> Chest: Chest palpation & inspection: normal inspection of the chest <Kathy Mariee NP - Last Filed: 02/27/20 17:10> Resp: Effort & Inspection: normal respiratory effort <Kathy Mariee NP - Last Filed: 02/27/20 17:10> Auscultation: clear to auscultation bilaterally <Kathy Mariee NP - Last Filed: 02/27/20 17:10> Cardio: Rate: regular rate <Kathy Mariee NP - Last Filed: 02/27/20 17:10> Rhythm: regular rhythm <Kathy Mariee NP - Last Filed: 02/27/20 17:10> Peripheral pulses: Peripheral pulses 2+ throughout <Kathy Mariee NP - Last Filed: 02/27/20 17:10> GI: Inspection: Yes normal to inspection <Kathy Mariee NP - Last Filed: 02/27/20 17:10> Palpation (GI): Soft to palpation and nontender <Kathy Mariee NP - Last Filed: 02/27/20 17:10> Auscultation: normal bowel sounds <Kathy Mariee NP - Last Filed: 02/27/20 17:10> Back/Spine/Pelvis: Thoracic/Lumbar Spine: thoracic and lumbar spine normal to inspection <Kathy Mariee NP - Last Filed: 02/27/20 17:10> Skin: General skin exam: no rashes or lesions noted <Kathy Mariee NP - Last Filed: 02/27/20 17:10> Neuro: General: patient oriented x3, no focal motor deficits and normal sensation to monofilament <Kathy Mariee NP - Last Filed: 02/27/20 17:10> Cranial nerves: Yes Equal, round and reactive pupils present <Kathy Mariee NP - Last Filed: 02/27/20 17:10> Cognition (Neuro): normal cognition <Kathy Mariee NP - Last Filed: 02/27/20 17:10> Speech: No Abnormal speech present <Kathy Mariee NP - Last Filed: 02/27/20 17:10> Gait exam (Neuro): Normal gait present <Kathy Mariee NP - Last Filed: 02/27/20 17:10> Motor exam (neuro): 5/5 motor strength present throughout <Kathy Mariee NP - Last Filed: 02/27/20 17:10> Extrem: Other: pain and swelling over the distal radius. Pain with flexion and extension of the wrist. Laceration noted to the left thenar which is approximately 1 in. NV intact distally. <Kathy Mariee NP - Last Filed: 02/27/20 17:10> General: Yes normal to inspection <Kathy Mariee NP - Last Filed: 02/27/20 17:10> Course Course Course Narrative: Will check imaging, wound repair. Will need physical therapy and case management evaluation. 1215- X-ray consistent with new transverse distal radial fracture. Patient had a wound repair done. She was placed in a splint. patient noted to have some low systolic blood pressure. She tells me she was seen by her primary care doctor 1 week ago and had her medications changed. She tells me has been running read low. She has no symptoms. She is alert and oriented. Will continue to monitor. Nursing aware to hold antihypertensives. 1700-sign out to Ninfa RENTERIA pending above. <Kathy Mariee NP - Last Filed: 02/27/20 17:10> Procedures Laceration Laceration 1: Site: hand ( left thenar) <Kathy Mariee NP - Last Filed: 02/27/20 17:10> Side (If applicable): left <Kathy Mariee NP - Last Filed: 02/27/20 17:10> Size (cm): 2.5 <Kathy Mariee NP - Last Filed: 02/27/20 17:10> Description: linear <Kathy Mariee NP - Last Filed: 02/27/20 17:10> Depth: simple, single layer <Kathy Mariee NP - Last Filed: 02/27/20 17:10> Local Anesthetic: lidocaine 2% <Kathy Mariee NP - Last Filed: 02/27/20 17:10> Pre-repair: wound explored and irrigated extensively <Kathy Mariee NP - Last Filed: 02/27/20 17:10> Skin layer closed with: nylon <Kathy Mariee NP - Last Filed: 02/27/20 17:10> Size (cm): 5-0 <Kathy Mariee NP - Last Filed: 02/27/20 17:10> Number of sutures: 3 <Kathy Mariee NP - Last Filed: 02/27/20 17:10> Technique: simple, interrupted <Kathy Mariee NP - Last Filed: 02/27/20 17:10> Orthopedic Splinting/Casting Injury #1: Side: left <Kathy Mariee NP - Last Filed: 02/27/20 17:10> Upper Extremity Injury Location: wrist <Kathy Mariee NP - Last Filed: 02/27/20 17:10> Upper Extremity Immobilizer: volar splint <Kathy Mariee NP - Last Filed: 02/27/20 17:10> MDM - Fall Medical Records Attestation: I reviewed the patient's medical records. <Kathy Mariee NP - Last Filed: 02/27/20 17:10> Lab Data Attestation: I reviewed the patient's lab results. <Kathy Mariee NP - Last Filed: 02/27/20 17:10> Imaging Data left wrist x-ray: Attestation: I personally reviewed and interpreted this imaging study as follows: <Kathy Mariee NP - Last Filed: 02/27/20 17:10> Radiologist's impression: EXAMINATION: XR HAND WRIST, LEFT CLINICAL INFORMATION: Fall, trauma, pain COMPARISON: None TECHNIQUE: The left hand and wrist are imaged together and 3 large [id number] images. A navicular view of the left wrist is also included for a total of 4 views. FINDINGS: There is a transverse hairline fracture distal radial metaphysis. No significant angulation or displacement. No dislocation. The ulnar variance is neutral. The distal ulnar and carpal and hand appear intact. There are degenerative changes first carpometacarpal joint and first MCP joint. XR/XR hand wrist LT IMPRESSION: Transverse fracture distal radial metaphysis. No dislocation. <Kathy Mariee NP - Last Filed: 02/27/20 17:10> Discharge Plan Discharge Clinical Impression: Laceration, Physical deconditioning, UTI (urinary tract infection) Distal radial fracture Qualifiers: Encounter type: initial encounter Fracture type: closed Fracture morphology: unspecified fracture morphology Laterality: left Qualified Code(s): S52.502A - Unspecified fracture of the lower end of left radius, initial encounter for closed fracture <Kathy Mariee NP - Last Filed: 02/27/20 17:10> Patient Disposition: Xfer SNF <Kathy Mariee NP - Last Filed: 02/27/20 17:10> Additional Instructions: Sutures out in 7-10 days Call orthopedics for a follow-up appointment. <MYRA Sarmiento Last Filed: 02/27/20 17:10> Prescriptions: No [facility] aspirin 81 mg Tablet 81 mg PO DAILY RF: 0 cephalexin 500 mg capsule 500 mg PO BID Qty: 14 RF: 0 cyclobenzaprine 5 mg tablet 5 mg PO TID PRN (Reason: muscle spasm) Qty: 10 RF: 0 ibuprofen 800 mg tablet 800 mg PO DAILY PRN (Reason: pain) RF: 0 atenolol 50 mg tablet 25 mg PO BID RF: 0 hydrochlorothiazide 25 mg tablet 25 mg PO DAILY RF: 0 atorvastatin 40 mg tablet 40 mg PO DAILY RF: 0 lisinopril 40 mg tablet 40 mg PO DAILY RF: 0 cetirizine 10 mg tablet 10 mg PO DAILY PRN (Reason: Cold Symptoms) RF: 0 cholecalciferol (vitamin D3) 1,250 mcg (50,000 unit) capsule 1,250 mcg PO 2XW RF: 0 <Kathy Mariee BREWERY TECHNICIAN - Last Filed: 02/27/20 17:10>
[2020-02-27 11:39] VITALS: BP 103/45; BP 110/72; PULSE 60; PULSE 85; RESP 16; TEMP 36.6; O2SAT 95; O2SAT 97; BMI 48.2
[2020-02-27] MEDS: Lidocaine HCl 2 % MPF 5 ML VIAL SUBCUT (11:47)
[2020-02-27] MEDS: oxyCODONE HCl Immed Release 5 MG TABLET PO (13:33)
[2020-02-27 16:04] VITALS: BP 80/41; PULSE 63; RESP 19; TEMP 36.9; O2SAT 94
[2020-02-27] MEDS: Ibuprofen 800 MG TABLET PO (16:04)
--- NOTE | 2020-02-27 16:15 | MHC.CM.ED ---
Patient was in the ER this morning due to back pain. Patient was discharged home with [facility]. Patient fell while trying to get into her home. She fractured her hand. Her left arm is currently splinted. Physical therapy eval completed. Short term rehab is recommended. Met with patient in regards to d/c planning. Patient agreeable to short term rehab. Patient agreeable to referral being broadcasted in [employer] to all facilities within 10 miles of her address that are contracted with her insurance. [facility] is first choice. [facility] is able to offer a bed and is in the process of obtaining insurance auth. Anticipate patient will be in ER overnight. Continue to monitor for d/c needs.
[2020-02-27 16:39] VITALS: BP 96/48
[2020-02-27] MEDS: traMADoL HCL 50 MG TABLET PO (18:48)
[2020-02-27] MEDS: Nitrofurantoin Monohyd/M-Cryst 100 MG CAPSULE PO (22:09)
[2020-02-28] VITALS: RESP 18
[2020-02-28 02:00] VITALS: RESP 18
--- NOTE | 2020-02-28 04:43 | PC.NURSE ---
2300: took over care from mary chavez. 0000: resting at this time skin p/w/d. airway patent. 0200: pt sleeping at this time skin p/w/d. airway patent. able to reposition self in bed. 0430: c/o pain at sitches in arm. aware. icepacks given.
[2020-02-28] MEDS: Ketorolac Tromethamine 15 MG/ML VIAL IM (04:47)
[2020-02-28] MEDS: traMADoL HCL 50 MG TABLET PO ×2 (06:30)
[2020-02-28] MEDS: Nitrofurantoin Monohyd/M-Cryst 100 MG CAPSULE PO (08:44)
[2020-02-28 08:45] VITALS: BP 123/49; PULSE 89; O2SAT 97
[2020-02-28 09:52] VITALS: BP 100/57; PULSE 86; RESP 15; O2SAT 94
--- NOTE | 2020-02-28 10:03 | MHC.CM.ED ---
Patient remains in ER. Patient accepted at [facility]. Patient can leave at 11am. [facility] booked. Med [facility] with chart. Patient, Kathy FEATHER SHAPER and Nain RN aware. Continue to monitor for d/c needs.
--- NOTE | 2020-02-28 11:15 | PC.NURSE ---
report given to rn at [facility]
--- NOTE | 2020-02-28 11:26 | PC.NURSE ---
this nurse did not care for patient as ems arrived prior to this nurse going into patients room
== END 2020-02-28 11:26 | disposition skilled nursing facility (03) ==
PROVIDERS: Emergency Provider Internal Medicine
DX: S61.412A Laceration without foreign body of left hand, initial encounter (principal); S52.502A Unspecified fracture of the lower end of left radius, initial encounter for closed fracture; M25.532 Pain in left wrist; M79.642 Pain in left hand; N39.0 Urinary tract infection, site not specified; W10.9XXA Fall (on) (from) unspecified stairs and steps, initial encounter; Y93.9 Activity, unspecified; Y92.009 Unspecified place in unspecified non-institutional (private) residence as the place of occurrence of the external cause; Z79.899 Other long term (current) drug therapy
CPT/HCPCS: 12001; 29105; 73110; 73130; 96372; 97162; 99284; J1885

== ENCOUNTER 2020-03-05 13:52 | Outpatient (REF) | payer MEDICARE, MEDICAID, SELFPAY ==
--- NOTE | 2020-03-05 13:52 | XR_ITS ---
EXAMINATION: XR WRIST, LEFT CLINICAL INFORMATION: Follow-up fracture COMPARISON: Previous x-ray 02/27/2020 TECHNIQUE: PA, lateral, and oblique views of the left wrist. FINDINGS: There is a nondisplaced transverse fracture of the distal radius. This appears unchanged in alignment from 02/27/2020. No other fracture is seen. There may be dorsal tilt of the lunate. There are cystic changes of the ulnar styloid and in the triquetrum. There are degenerative changes of the first MCP and [facility] joints. There is an overlying splint. Soft tissues are unremarkable. XR/XR wrist LT min 3V IMPRESSION: No change in left distal radius fracture.
== END 2020-03-05 13:53 | disposition home or self-care (01) ==
LOC: HO.HOSX 13:52
PROVIDERS: PCP Internal Medicine; Visit Provider Orthopaedic Surgery
DX: S52.502A Unspecified fracture of the lower end of left radius, initial encounter for closed fracture (principal); Z87.891 Personal history of nicotine dependence
CPT/HCPCS: 25600; 73110; 99202

== ENCOUNTER 2020-03-26 09:03 | Outpatient (REF) | payer MEDICARE, MEDICAID, SELFPAY | END 2020-03-26 09:04 | disposition home or self-care (01) | LOC: HO.HOSX 09:03 | PROVIDERS: Visit Provider Orthopaedic Surgery | DX: S52.502D Unspecified fracture of the lower end of left radius, subsequent encounter for closed fracture with routine healing (principal) | CPT/HCPCS: 99212 ==

== ENCOUNTER 2020-03-26 09:55 | Outpatient (REF) | payer MEDICARE, MEDICAID, SELFPAY ==
--- NOTE | 2020-03-26 10:01 | XR_ITS ---
EXAMINATION: XR WRIST, LEFT CLINICAL INFORMATION: Distal radial fracture. Followup. COMPARISON: Radiographs left wrist 03/05/2020 TECHNIQUE: PA, lateral, and oblique views of the left wrist. FINDINGS: There is an overlying fiberglass cast. The distal radial fracture is less distinct. There is no significant change in alignment. Mild dorsal tilt lunate and degenerative changes lateral carpus are again noted. XR/XR wrist LT min 3V IMPRESSION: Healing fracture distal left radius.
== END 2020-03-26 09:56 | disposition home or self-care (01) ==
LOC: HO.XRAY 09:55
PROVIDERS: PCP Internal Medicine; Visit Provider Orthopaedic Surgery
DX: S52.502A Unspecified fracture of the lower end of left radius, initial encounter for closed fracture (principal)
CPT/HCPCS: 73110

== ENCOUNTER 2020-07-16 09:03 | Outpatient (REF) | payer MEDICARE, MEDICAID, SELFPAY ==
--- NOTE | ~2020-07-16 | XR_ITS ---
EXAMINATION: XR CLAVICLE, RIGHT CLINICAL INFORMATION: M89.8X1 - Other specified disorders of bone, shoulder COMPARISON: Radiographs right shoulder 07/14/2018, CT chest noncontrast 07/23/2018 TECHNIQUE: Two views of the right clavicle. FINDINGS: The acromioclavicular alignment is normal. There is no acromioclavicular separation, fracture, destructive process. There are small calcifications adjacent to the greater tuberosity and posterior superior labrum consistent with calcific tendinosis. There is a metallic ringlike structure overlying mid line lower cervical region or mandible, similar to frontal view CT topogram 07/23/2018 XR/XR clavicle RT IMPRESSION: 1. No fracture or acromioclavicular separation. No destructive process. 2. Calcific tendinosis adjacent to greater tuberosity and near posterior superior labrum.
== END 2020-07-16 09:04 | disposition home or self-care (01) ==
LOC: HO.HMGCX 09:03
PROVIDERS: PCP Internal Medicine; Visit Provider Nurse Practitioner Family
DX: M89.8X1 Other specified disorders of bone, shoulder (principal); E55.9 Vitamin D deficiency, unspecified
CPT/HCPCS: 73000

== ENCOUNTER 2020-08-29 09:09 | Outpatient (REF) | payer MEDICARE, MEDICAID, SELFPAY ==
--- NOTE | ~2020-08-29 | XR_ITS ---
EXAMINATION: XR WRIST, LEFT CLINICAL INFORMATION: Pain left wrist. COMPARISON: None TECHNIQUE: PA, lateral, and oblique views of the left wrist. FINDINGS: There is mild sclerosis along the distal radius likely healed fracture. There is no acute fracture seen. The radiocarpal joint space is normal. There is loss of first carpometacarpal joint space with moderate spurring. The intercarpal and rest of the carpometacarpal joint space is normal. The soft tissues are normal. XR/XR wrist LT min 3V IMPRESSION: Healed fracture right distal radius. There is no visible acute fracture or bony abnormality. Mild osteoarthritic changes first carpometacarpal joint.
== END 2020-08-29 09:10 | disposition home or self-care (01) ==
LOC: HO.HOSX 09:09
PROVIDERS: Visit Provider Orthopaedic Surgery
DX: S52.502A Unspecified fracture of the lower end of left radius, initial encounter for closed fracture (principal); M25.532 Pain in left wrist; R20.0 Anesthesia of skin; M79.89 Other specified soft tissue disorders
CPT/HCPCS: 73110; 99212

== ENCOUNTER 2020-09-28 09:34 | Outpatient (REF) | payer MEDICARE, MEDICAID, SELFPAY ==
--- NOTE | ~2020-09-28 | MR_ITS ---
EXAMINATION: MR WRIST, LEFT WITHOUT/WITH CONTRAST CLINICAL INFORMATION: Left wrist pain. Also, lump of anterior wrist. History of carpal tunnel surgery many years ago. COMPARISON: Radiographs of the wrist from 03/26/2020 and 08/29/2020 TECHNIQUE: MR imaging of the left wrist was performed using standard sequences on a high-field magnet without and with intravenous administration of 10 mL Gadavist. FINDINGS: BONES AND JOINTS: Old, healed fracture of the distal radial metaphysis. No acute osseous injury. The cystlike signal change within the ulnar styloid is likely sequela of the remote trauma. The ulna is properly positioned within the sigmoid notch. A small effusion of the distal radioulnar joint is present. There is thinning of articular cartilage at the radioscaphoid joint. There is a radiocarpal joint effusion with synovial enhancement of the joint, suggestive of synovitis of the mildly osteoarthritic joint. A few small carpal bone cysts are noted. There is osteophyte formation and subarticular cystic change at the pisotriquetral articulation. No acute carpal bone fracture or osteonecrosis. Mild osteoarthritis of the triscaphe joint. There is irregular loss of articular cartilage, subchondral cystic change, subchondral sclerosis and osteophytosis at the severely degenerated first carpometacarpal joint. TRIANGULAR FIBROCARTILAGE: The ligaments of the wrist are suboptimally evaluated on these motion degraded images. There appears to be a partial-thickness defect within the triangular fibrocartilage disc at the level of the ulnolunate articulation. There is abnormal hyperintense T2 signal the peripheral, fascicular attachments of the TFC to the ulnar styloid and fovea. These fascicular attachments are ill-defined, which suggests that these structures were likely injured/torn at the time of the prior radial fracture. A small amount of fluid overlies the ulnar styloid process, likely sequela of ulnar sided ligament injury. The volar and dorsal radioulnar ligaments, and ulnotriquetral ligament, are unremarkable. INTRINSIC LIGAMENTS: Scapholunate and lunatotriquetral ligaments are grossly intact, but not optimally evaluated on motion degraded images. TENDONS: Flexor and extensor tendons of the wrist are intact. No evidence of tendon tear or de Quervain's tenosynovitis. The extensor carpi ulnaris tendon is normal. There is a small amount of tendon sheath fluid and tenosynovial enhancement of the flexor carpi radialis at the volar aspect of the wrist; this suggests presence of mild tenosynovitis. NERVES AND OTHER SOFT TISSUES: Within the carpal tunnel, the median nerve is relatively large, with surface area of approximately 20 mm2. There is palmar bowing of the flexor retinaculum and mild hypointense tissue from scarring from prior carpal tunnel surgery. Query if there is any clinical symptomatology of active carpal tunnel syndrome. The radial and ulnar neurovascular bundles are unremarkable. No lesions within Guyon's canal. No ganglion cyst. A skin marker was placed over the ulnar, volar aspect of the wrist in area of palpable concern. There is mild prominence of adipose tissue in this area but no discrete lipoma or other soft tissue mass. This overlies the region of the severely degenerated pisotriquetral joint. MR/MR wrist LT wo/w con IMPRESSION: * Old, healed fracture of the distal radius. No acute osseous injury in the distal forearm or wrist. * The fascicular attachments of the TFC to the ulna are ill-defined, and small amount of fluid overlies the region of the ulnar styloid. These findings suggest sequela of prior tearing of the fascicular attachments of the TFC complex. * Mild osteoarthritis and synovitis of the radiocarpal compartment. Also, there is severe osteoarthritis of the pisotriquetral joint and first carpometacarpal joint. * The median nerve is relatively large as it courses through the carpal tunnel, and there is palmar bowing of the flexor retinaculum, compatible with history of carpal tunnel syndrome. * Mild tenosynovitis of the flexor carpi radialis. * No evidence of soft tissue mass in the distal forearm or wrist.
[2020-09-28 10:18] LABS: Blood Urea Nitrogen 12 mg/dL (9-16); Estimated Glomerular Filt Rate > 60
[2020-09-28 11:02] LABS: Alanine Aminotransferase 12 U/L (0-31); Anion Gap 13 (12-20); Aspartate Amino Transferase 14 U/L (5-31); Blood Urea Nitrogen 12 mg/dL (9-16); Calcium 9.5 mg/dL (8.4-10.2); Carbon Dioxide 26 mmol/L (22-29); Chloride 106 mmol/L (96-108); Cholesterol 154 mg/dL; Estimated Glomerular Filt Rate > 60; Glucose Fasting 98 mg/dL (60-99); HDL Cholesterol 44 mg/dL; LDL Cholesterol Calculated 92 mg/dl; Potassium 3.8 mmol/L (3.3-5.1); Sodium 141 mmol/L (135-145); Triglycerides 93 mg/dL
[2020-09-28 11:25] LABS: Vitamin D 25-OH Total 86.5 ng/mL (>30)
== END 2020-09-28 09:35 | disposition home or self-care (01) ==
LOC: HO.MRI 09:34
PROVIDERS: Physician Assistant; PCP Internal Medicine; Visit Provider Orthopaedic Surgery
DX: M79.89 Other specified soft tissue disorders (principal)
CPT/HCPCS: 36415; 73223; 80048; 80061; 82306; 82565; 84450; 84460; 84520; A9585

== ENCOUNTER 2020-10-10 13:01 | Outpatient (REF) | payer MEDICARE, MEDICAID, SELFPAY ==
--- NOTE | ~2020-10-10 | MM_ITS ---
EXAMINATION: MM SCREENING DIGITAL MAMMOGRAPHY, BILATERAL CLINICAL INFORMATION: Screening. Asymptomatic. The lifetime risk of breast cancer based on the Tyrer-Cuzick Model is 10%. COMPARISON: Mammography: 05/17/2019, the 03/07/2016 TECHNIQUE: Digital mammography is performed in craniocaudal and mediolateral oblique views along with computer-aided detection (CAD). FINDINGS: The breasts are almost entirely fatty (ACR BI-RADS breast composition Category a). There are no significant masses, abnormal calcifications, or other abnormalities. Background stromal markings are stable. There are mild prominent draining veins bilateral medial breasts similar to prior studies. The skin contours are smooth. No coarsening Ted's ligaments. No significant changes from prior studies. MM/MM screening mammo BI IMPRESSION: No mammographic evidence of malignancy. ASSESSMENT: BI-RADS 2: Benign RECOMMENDATION: Routine annual mammography screening. This patient's information was entered into a reminder system with a target due date for their next mammogram.
--- NOTE | ~2020-10-10 | MM_ITS ---
EXAMINATION: BONE DENSITOMETRY CLINICAL INDICATION: Screening for osteoporosis. COMPARISON: None (current study represents initial baseline exam). TECHNIQUE: Using a PressPad DXA System (software version: 13.1) manufactured by [employer], dual-energy x-ray absorptiometry was performed of the lumbar spine and left hip. The images are of good technical quality. Summary results are attached. FINDINGS: AP SPINE L1-L4 (excluding L3): The data of L1-L4 has been changed to exclude the L3 vertebral body, because generative changes at this level may cause overestimation of lumbar spine density. BMD 1.247 g/cm2, Z-score 1.1, T-score 0.6, normal. LEFT FEMUR, NECK: BMD 0.820 g/cm2, Z-score -0.9, T-score -1.6, osteopenia. LEFT FEMUR, TOTAL: BMD 0.991 g/cm2, Z-score 0.2, T-score -0.1, normal. IDENTIFIED RISK FACTORS: Height loss, history of fracture (adult). Early menopause, secondary osteoporosis, hysterectomy, bilateral oophorectomy. HISTORY OF FRACTURE: Wrist. MEDICATIONS: Vitamin D. MM/XR DEXA axial skeleton IMPRESSION: 1. DIAGNOSIS: Osteopenia based on the lowest T-score value of -1.6 in the femoral neck applying World Health Organization criteria. 2. 10-YEAR FRACTURE RISK PREDICTION, FRAX: Major osteoporotic fracture (clinical spine, forearm, hip or shoulder) 12.4%. Hip fracture 1.2%. 3. Treatment Recommendations: NOF guidelines recommend consideration for treatment in postmenopausal women and men age 50 and older presenting with the following: -A hip or vertebral (clinical or morphometric) fracture. -T-score less than or equal to -2.5 at the femoral neck or spine after appropriate evaluation to exclude secondary causes. -Low bone mass at the hip or spine and a 10-year fracture probability by FRAX of greater than or equal to 3% for hip fracture or greater than or equal to 20% for major osteoporotic fracture based on the [place] adapted WHO algorithm. 4. Other Recommendations: All treatment decisions require clinical judgment and consideration of individual patient factors, including patient preferences, comorbidities, previous drug use, risk factors not captured in the FRAX model (e.g. frailty, falls, vitamin D deficiency, increased bone turnover, interval significant decline in bone density) and possible under or overestimation of fracture risk by FRAX. Additional medical evaluation for secondary cause of low bone mineral density may be appropriate. FUTURE SCAN RECOMMENDATION: People with diagnosed cases of osteoporosis or at high risk for fracture should have regular bone mineral density tests. For patients eligible for Medicare, routine testing is allowed once every 2 years. The testing frequency can be increased to one year for patients who have rapidly progressing disease, those who are receiving or discontinuing medical therapy to restore bone mass, or have additional risk factors.
== END 2020-10-10 13:02 | disposition home or self-care (01) ==
LOC: HO.MAMMO 13:01
PROVIDERS: PCP Internal Medicine; Visit Provider Internal Medicine
DX: Z12.31 Encounter for screening mammogram for malignant neoplasm of breast (principal); Z13.820 Encounter for screening for osteoporosis; M85.80 Other specified disorders of bone density and structure, unspecified site; Z78.0 Asymptomatic menopausal state; Z87.81 Personal history of (healed) traumatic fracture; Z79.899 Other long term (current) drug therapy; Z98.890 Other specified postprocedural states; Z90.722 Acquired absence of ovaries, bilateral
CPT/HCPCS: 77067; 77080

== ENCOUNTER → 2020-12-17 09:20 | Outpatient (BNVA) | payer MEDICARE, MEDICAID, SELFPAY | PROVIDERS: Visit Provider Orthopaedic Surgery | DX: M79.89 Other specified soft tissue disorders (principal); R20.0 Anesthesia of skin | CPT/HCPCS: 99212 ==

== ENCOUNTER 2021-01-24 08:59 | Outpatient (REF) | payer MEDICARE, MEDICAID, SELFPAY ==
--- NOTE | 2021-01-24 09:02 | EMG_ITS ---
Left median and ulnar motor and sensory studies were performed. Left radial sensory study was performed and paraspinal muscles were tested with a needle. IMPRESSION: 1. Moderately severe axonal sensory motor peripheral neuropathy. 2. Left chronic lower cervical radiculopathy. MD ZONIA Rossi/CECILIO / [phone]
== END 2021-01-24 09:00 | disposition home or self-care (01) ==
LOC: HO.NEURO 08:59
PROVIDERS: PCP Internal Medicine; Visit Provider Orthopaedic Surgery
DX: R20.0 Anesthesia of skin (principal); R20.2 Paresthesia of skin
CPT/HCPCS: 95885; 95909

== ENCOUNTER 2021-02-06 09:45 | Outpatient (REF) | payer MEDICARE, MEDICAID, SELFPAY ==
--- NOTE | ~2021-02-06 | US_ITS ---
EXAMINATION: US SOFT TISSUE NECK CLINICAL INFORMATION: Localized swelling, mass, lump, neck. COMPARISON: Right clavicle x-ray June 2020. TECHNIQUE: Ultrasound of the right sternoclavicular region was performed with high-frequency maria-scale imaging and color Doppler. Comparison imaging of the left sternoclavicular region was also performed. FINDINGS: There is asymmetric increased hypoechoic soft tissue adjacent to the right sternoclavicular joint compared to the left. No focal fluid collection or mass is seen. US/US soft tiss head and/or neck IMPRESSION: Asymmetric soft tissue adjacent to the right sternoclavicular joint compared to the left.
== END 2021-02-06 09:46 | disposition home or self-care (01) ==
LOC: HO.HMGCX 09:45
PROVIDERS: PCP Internal Medicine; Visit Provider Internal Medicine
DX: R22.1 Localized swelling, mass and lump, neck (principal)
CPT/HCPCS: 76536

== ENCOUNTER → 2021-04-02 09:38 | Outpatient (BNVA) | payer MEDICARE, MEDICAID, SELFPAY | PROVIDERS: PCP Internal Medicine; Referring Provider Internal Medicine; Visit Provider Surgery | DX: R22.2 Localized swelling, mass and lump, trunk (principal) | CPT/HCPCS: 99202 ==

== ENCOUNTER 2021-05-21 07:34 | Outpatient (REF) | payer MEDICARE, MEDICAID, SELFPAY ==
--- NOTE | ~2021-05-21 | CT_ITS ---
EXAMINATION: CT CHEST WITH CONTRAST CLINICAL INFORMATION: Localized swelling, mass and lump of the trunk COMPARISON: Previous chest x-ray most recent December [address] June 2018 TECHNIQUE: Multidetector volumetric CT imaging of the chest was obtained after the administration of 65 mL of Omnipaque 350 intravenous contrast without immediate adverse reactions. Axial MIP volume rendering provided. Sagittal and coronal reformatted images were obtained. This CT examination was performed using dose optimization techniques as appropriate, variously including the following: *Automated exposure control *Adjustment of mA and/or kV according to patient size (this includes techniques or standardized protocols for targeted exams where dose is matched to indication/reason for exam; i.e. extremities or head) *Use of iterative reconstruction technique DLP: 277 mGy-cm FINDINGS: LUNGS: There is slight elevation or eventration of the right hemidiaphragm. There is linear scarring or subsegmental atelectasis at the lung bases. There is a 3 mm peripheral or subpleural right lower lobe nodule axial image 132 series 5 probably representing a subpleural lymph node. This is stable from 2019 exam. MEDIASTINUM: There is coronary artery calcification. The mediastinum is otherwise normal. PLEURA: There is no pleural effusion. No pleural mass or thickening. AXILLA: No chest wall mass is seen. There are no enlarged axillary lymph nodes. UPPER ABDOMEN: The liver is slightly low in attenuation suggestive of mild fatty infiltration. The gallbladder has been removed. OSSEOUS STRUCTURES: There are degenerative changes of the spine. There are degenerative changes at the sternoclavicular joints. This may account for palpable abnormality in this region. There are is evidence of previous surgery to the cervical spine. CT/CT chest w con IMPRESSION: No chest wall mass is seen. Stable small right lower lobe nodule probably representing a subpleural lymph node. Slight elevation or eventration of the right hemidiaphragm. Coronary artery calcification. Fleischner guidelines were followed.
[2021-05-21 08:30] LABS: Blood Urea Nitrogen 15 mg/dL (9-16); Estimated Glomerular Filt Rate > 60
[2021-05-21] MEDS: iohexoL 350 MG/ML 100 ML INFUS..BTL 65 ML IV (09:28)
== END 2021-05-21 07:35 | disposition home or self-care (01) ==
LOC: HO.CT 07:34
PROVIDERS: PCP Internal Medicine; Visit Provider Surgery
DX: R22.2 Localized swelling, mass and lump, trunk (principal)
CPT/HCPCS: 36415; 71260; 82565; 84520; Q9967

== ENCOUNTER → 2021-05-28 10:18 | Outpatient (BNVA) | payer MEDICARE, MEDICAID, SELFPAY | PROVIDERS: PCP Internal Medicine; Visit Provider Surgery | DX: R22.2 Localized swelling, mass and lump, trunk (principal) | CPT/HCPCS: Q3014 ==

== ENCOUNTER → 2021-08-14 15:36 | Outpatient (BNVA) | payer MEDICARE, MEDICAID, SELFPAY | PROVIDERS: PCP Internal Medicine; Visit Provider Orthopaedic Surgery | DX: M54.12 Radiculopathy, cervical region (principal) | CPT/HCPCS: Q3014 ==

== ENCOUNTER 2021-09-19 06:31 | Outpatient (REF) | payer MEDICARE, MEDICAID, SELFPAY ==
[2021-09-19 11:43] LABS: Alanine Aminotransferase 14 U/L (0-31); Anion Gap 11 (12-20); Aspartate Amino Transferase 14 U/L (5-31); Blood Urea Nitrogen 13 mg/dL (9-16); Calcium 9.5 mg/dL (8.4-10.2); Carbon Dioxide 29 mmol/L (22-29); Chloride 104 mmol/L (96-108); Cholesterol 164 mg/dL; Estimated Glomerular Filt Rate > 60; Glucose Fasting 93 mg/dL (60-99); HDL Cholesterol 52 mg/dL; LDL Cholesterol Calculated 93 mg/dl; Potassium 4.4 mmol/L (3.3-5.1); Sodium 140 mmol/L (135-145); Triglycerides 98 mg/dL
== END 2021-09-19 06:32 | disposition home or self-care (01) ==
LOC: HO.HMGCLDS 06:31
PROVIDERS: Visit Provider Internal Medicine
DX: E55.9 Vitamin D deficiency, unspecified (principal); E78.5 Hyperlipidemia, unspecified; I10 Essential (primary) hypertension; M85.852 Other specified disorders of bone density and structure, left thigh
CPT/HCPCS: 36415; 80048; 80061; 82306; 84450; 84460

== ENCOUNTER → 2021-10-23 14:00 | Outpatient (BNVA) | payer MEDICARE, MEDICAID, SELFPAY | PROVIDERS: PCP Internal Medicine; Referring Provider Internal Medicine; Visit Provider Internal Medicine Cardiovascular Disease | DX: I25.10 Atherosclerotic heart disease of native coronary artery without angina pectoris (principal); I25.84 Coronary atherosclerosis due to calcified coronary lesion; R06.09 Other forms of dyspnea | CPT/HCPCS: 93005; 99212 ==

== ENCOUNTER → 2022-05-21 08:02 | Outpatient (REF) | payer MEDICARE, MEDICAID, SELFPAY ==
--- NOTE | ~2022-05-21 | NM_ITS ---
Myocardial perfusion study Indication: Shortness of breath to evaluate for myocardial ischemia Technique: The patient was brought in for a Lexiscan perfusion study on 05/21/2022. Patient performed low-level exercise and was injected 0.4 mg of Lexiscan intravenously. Within a minute of injection, 40 mCi of sestamibi was given intravenously. Images were obtained using the SPECT gamma camera interlaced with the gating device. Images were obtained in supine position. Resting perfusion study was performed on 06/05/2022. Patient was administered 40 mCi of sestamibi intravenously at rest. Images were then obtained in supine position. Images obtained with and without CT attenuation. Total DLP 140 mGy-cm. Images were processed with the software and compared side to side in short axis, horizontal long axis and vertical long axis views. Findings: The stress perfusion study showed non attenuated images show small area of mildly reduced uptake in the apex with minimal thinning of anterior wall of the LV myocardium. Remainder of the LV myocardium is normally perfused. Attenuation corrected images show mildly reduced uptake in the apex of the LV myocardium. The gated study shows normal LV systolic function with calculated LVEF of 60%. LV cavity is normal in size. The gated study shows normal systolic wall thickening and contraction of segments. Resting study shows attenuated corrected images show mildly reduced uptake in the apex of the LV myocardium. Gating at rest reveals normal systolic wall motion with ejection fraction at 61%. The findings are consistent with likely normal myocardial perfusion. NM/NM brandon perf SPECT rest & str Impression: 1. Myocardial perfusion imaging study shows likely normal in 2. Gated LVEF is 60% 3. Transient ischemic dilatation not present EKG is nondiagnostic for ischemia
--- NOTE | 2022-05-21 08:04 | CA_ITS ---
Acquisition Time: 2022-05-21 08:14:38 Total Exercise Time: 00:02:00 Test Indications: SOB Medications: SEE CHART Protocol: LEXISCAN Max HR: 083 BPM 53% of Pred: 154 BPM Max BP: 126/070 mmHG Max Work Load: 1.0 METS Pharmacological stress test using Lexiscan while sitting. Pt tolerated well, Denies any CP , mild SOB that resoolved in recovery. EKG with occasional PVC's Non-diagnostic for ischemia, nuclear images to follow. Normotensive response to test. Test reviewed with Dr. Jackson. Referred By: Wade Petersen Overread By: Daylin Kessler NP
== END ==
LOC: HO.CARD 08:02
PROVIDERS: PCP Internal Medicine; Visit Provider Internal Medicine Cardiovascular Disease
DX: R06.09 Other forms of dyspnea (principal)
CPT/HCPCS: 78452; 93017; A9500; J0280; J2785

== ENCOUNTER 2022-09-25 10:22 | Outpatient (REF) | payer MEDICARE, MEDICAID, SELFPAY ==
--- NOTE | ~2022-09-25 | XR_ITS ---
EXAMINATION: XR KNEE, RIGHT CLINICAL INFORMATION: Right knee pain. COMPARISON: None available. TECHNIQUE: Four views of the right knee. FINDINGS: Severe medial femoral-tibial and mild lateral femoral tibial patellofemoral degenerative joint changes are seen. There is no acute fracture or dislocation. The soft tissues are unremarkable. XR/XR knee RT 4V IMPRESSION: Tricompartmental degenerative joint changes most consistent with osteoporosis arthritis. No overt acute abnormality.
[2022-09-25 11:10] LABS: MANUAL DIFF FLAG NO
[2022-09-25 11:14] LABS: Basophils Percent Auto 0.3 % (0-2); Eosinophils Absolute Auto 0.3 X10*3/uL (0.0-0.4); Eosinophils Percent Auto 2.4 % (0-4); Hematocrit 50.2 % (37.0-47.0); Hemoglobin 16.1 g/dl (12.0-16.0); Imm Gran Abs Auto 0.02 X10*3/uL (0.00-0.03); Imm Gran Pct Auto 0.2 % (0.0-0.4); Lymphocytes Absolute Auto 2.8 X10*3/uL (1.2-4.9); Lymphocytes Percent Auto 26.4 % (20-40); Mean Corpuscular HGB Conc 32.1 g/dl (31.0-35.0); Mean Corpuscular Hemoglobin 29.2 pg (27.0-33.0); Mean Corpuscular Volume 90.9 fL (80.0-98.0); Mean Platelet Volume 10.2 fL (9.4-12.3); Monocytes Absolute Auto 0.8 X10*3/uL (0.1-1.2); Monocytes Percent Auto 7.6 % (2-11); Neutrophils Absolute Auto 6.7 x10*3/uL (2.0-8.3); Neutrophils Percent Auto 63.1 % (45-73); Platelet Count 192 X10*3/uL (160-400); Red Blood Count 5.52 X10*6/uL (4.20-5.50); Red Cell Distribution Width 13.4 % (11.0-16.0); White Blood Count 10.7 X10*3/uL (4.8-10.8)
[2022-09-25 11:44] LABS: Alanine Aminotransferase 15 U/L (0-31); Anion Gap 13 (12-20); Aspartate Amino Transferase 15 U/L (5-31); Blood Urea Nitrogen 14 mg/dL (9-16); Calcium 9.7 mg/dL (8.4-10.2); Carbon Dioxide 27 mmol/L (22-29); Chloride 106 mmol/L (96-108); Cholesterol 155 mg/dL; Estimated Glomerular Filt Rate > 60; Glucose Fasting 104 mg/dL (60-99); HDL Cholesterol 45 mg/dL; LDL Cholesterol Calculated 89 mg/dl; Potassium 4.1 mmol/L (3.3-5.1); Sodium 142 mmol/L (135-145); Triglycerides 108 mg/dL
[2022-09-25 11:49] LABS: Vitamin D 25-OH Total 31.4 ng/mL (>30)
== END 2022-09-25 10:23 | disposition home or self-care (01) ==
LOC: HO.HMGCX 10:22
PROVIDERS: PCP Internal Medicine; Visit Provider Internal Medicine
DX: M25.561 Pain in right knee (principal); E78.5 Hyperlipidemia, unspecified; I10 Essential (primary) hypertension; M85.852 Other specified disorders of bone density and structure, left thigh; R05.3 Chronic cough; Z78.0 Asymptomatic menopausal state
CPT/HCPCS: 36415; 73564; 80048; 80061; 82306; 84450; 84460; 85025

== ENCOUNTER 2023-11-20 08:06 | Outpatient (REF) | payer MEDICARE, MEDICAID, SELFPAY ==
[2023-11-20 09:06] LABS: MANUAL DIFF FLAG NO
[2023-11-20 09:34] LABS: Basophils Percent Auto 0.3 % (0-2); Eosinophils Absolute Auto 0.3 X10*3/uL (0.0-0.4); Eosinophils Percent Auto 2.7 % (0-4); Hematocrit 47.7 % (37.0-47.0); Hemoglobin 15.1 g/dl (12.0-16.0); Imm Gran Abs Auto 0.04 X10*3/uL (0.00-0.03); Imm Gran Pct Auto 0.3 % (0.0-0.4); Lymphocytes Absolute Auto 2.4 X10*3/uL (1.2-4.9); Lymphocytes Percent Auto 21.1 % (20-40); Mean Corpuscular HGB Conc 31.7 g/dl (31.0-35.0); Mean Corpuscular Hemoglobin 30.1 pg (27.0-33.0); Mean Corpuscular Volume 95.2 fL (80.0-98.0); Mean Platelet Volume 10.6 fL (9.4-12.3); Monocytes Absolute Auto 0.6 X10*3/uL (0.1-1.2); Monocytes Percent Auto 5.4 % (2-11); Neutrophils Absolute Auto 8.1 x10*3/uL (2.0-8.3); Neutrophils Percent Auto 70.2 % (45-73); Platelet Count 170 X10*3/uL (160-400); Red Blood Count 5.01 X10*6/uL (4.20-5.50); White Blood Count 11.6 X10*3/uL (4.8-10.8)
[2023-11-20 10:10] LABS: Alanine Aminotransferase 19 U/L (0-31); Albumin Level 3.8 g/dL (3.5-5.0); Alkaline Phosphatase 104 U/L (39-117); Anion Gap 12 (12-20); Aspartate Amino Transferase 16 U/L (5-31); Bilirubin Total 1.5 mg/dL (0.0-1.0); Blood Urea Nitrogen 10 mg/dL (9-16); Calcium 9.5 mg/dL (8.4-10.2); Carbon Dioxide 28 mmol/L (22-29); Chloride 108 mmol/L (96-108); Cholesterol 124 mg/dL (<200); Estimated Glomerular Filt Rate > 60; Glucose Random 90 mg/dL (60-115); HDL Cholesterol 50 mg/dL (>40); LDL Cholesterol Calculated 57 mg/dL (<100); Potassium 3.5 mmol/L (3.3-5.1); Sodium 144 mmol/L (135-145); Triglycerides 88 mg/dL (<150)
== END 2023-11-20 08:07 | disposition home or self-care (01) ==
LOC: HO.LAB 08:06
PROVIDERS: PCP Internal Medicine; Visit Provider Nurse Practitioner Family
DX: I25.10 Atherosclerotic heart disease of native coronary artery without angina pectoris (principal); I25.84 Coronary atherosclerosis due to calcified coronary lesion; E78.5 Hyperlipidemia, unspecified; E66.01 Morbid (severe) obesity due to excess calories; G47.33 Obstructive sleep apnea (adult) (pediatric)
CPT/HCPCS: 36415; 80053; 80061; 85025; 93005; 99212

== ENCOUNTER 2023-11-20 08:06 | Outpatient (AMB) | payer MEDICARE, MEDICAID, SELFPAY ==
[2023-11-20 08:15] VITALS: BP 140/72; PULSE 74
--- NOTE | 2023-11-20 08:15 | A.OFFVIS_ITS ---
Vital Signs 11/20/23 08:15 Height 5 ft 4 in BP 140/72 H Blood Pressure Location Lt brachial Position Sitting Pulse 74 Pulse Source Monitor Intake Visit Reasons: over due - KM 2021 Surgical Device Sales Representative Required: No Management Analyst: Management Analyst Present Allergies Cortisone Adverse Reaction (Unknown, Verified 11/20/23 08:17) leg turned black naproxen [From NAPROSYN] Adverse Reaction (Unknown, Verified 11/20/23 08:17) DEPRESSION , severe depression, extreme fatgue and drepression Medication List - Last Reconciled 11/20/23 by Laura Ariza CIVIL TRANSPORTATION ENGINEER-C aspirin 81 mg PO DAILY atenolol 25 mg (1/2 x 50 mg) PO BID atorvastatin 40 mg PO DAILY cetirizine 10 mg PO DAILY PRN cyclobenzaprine 5 mg (1/2 x 10 mg) PO BID PRN fluticasone propion-salmeterol 250-50 mcg/dose (Advair Diskus) 1 inh inhalation Q12H furosemide 20 mg PO QAM PRN ibuprofen 800 mg PO DAILY PRN lisinopril 40 mg PO DAILY HPI HPI over due - KM 2021: Details: Belinda is a 68-year-old female with past medical history of morbid obesity, hypertension, hyperlipidemia, obstructive sleep apnea with CPAP use, smoking, COPD, right bundle branch block, coronary artery calcification on CT scan who presents for follow-up. Her last prior visit to our office was 10/23/2021. Today she reports that she has not been having any chest discomfort at rest or with activity. She does have shortness of breath with walking short distances. No PND, orthopnea or edema. No heart palpitations, lightheadedness, presyncope, syncope, falls. She is mostly sedentary. She is able to ambulate short distances in her home holding onto objects. At this visit she is sitting in a wheelchair. She reports having knee and low back pains. She reports compliance with her CPAP. She smokes cigarettes every few days when her stress levels are elevated. She reports compliance with her meds. Her son is present. ON LICENSE OF [facility] Medical History (Updated 11/20/23 @ 08:58 by Laura Ariaz, CIVIL TRANSPORTATION ENGINEER-C) Obstructive sleep apnea Difficulty walking Morbid obesity Annual visit for general adult medical examination with abnormal findings Knee pain, right Change in vision Persistent cough for 3 weeks or longer 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 mass Osteopenia of left femoral neck Vitamin D deficiency Left wrist fracture Spondylosis of lumbar region without myelopathy or radiculopathy Distal radius fracture, left Psoriasis Adenomyosis of uterus Ventral hernia Fibromyalgia Environmental and seasonal allergies CHAS on CPAP Urinary, incontinence, stress female Osteoarthritis of knees, bilateral Hyperlipidemia Essential hypertension Surgical History H/O carpal tunnel repair Torn ACL History of total abdominal hysterectomy and bilateral salpingo-oophorectomy History of laparoscopic cholecystectomy Family History Father CAD (coronary artery disease) CVD (cardiovascular disease) Stroke Mother History of CVA (cerebrovascular accident) Brother No problems noted. Brother No problems noted. Son No problems noted. Social History Housing: House Alcohol intake: former Year quit: 2020 Patient Tobacco Use Status: Current someday Tobacco user (Occasionally every 1- 2 months when she has the craving) Cigarettes Per Day: 2 Years Smoked: 40 +/- e-Cigarette/Vaping Use: Never Used Second Hand Smoke Exposure: Yes Current occupational status: disabled Current occupation: rt handed Cognitive needs: No Hearing needs: No Vision needs: Yes Review of Systems Const All systems reviewed & are unremarkable except as noted in HPI and below ENT Denies dizziness Card Denies chest pain, Denies chest pain at rest, Denies chest pain with activity, Denies rapid heart rate, Denies pedal edema, Denies edema, Denies leg edema, Denies lightheadedness, Denies palpitations, Denies dyspnea, Reports dyspnea on exertion and Denies orthopnea Resp Denies cough, Denies dyspnea and Reports dyspnea on exertion GI Denies hematochezia and Denies change in stool character Musc Details: knee pains, back discomfort Reports abnormal gait, Reports limited range of motion, Denies muscle cramps, Denies muscle weakness, Denies numbness, Denies radiating pain into limb, Denies stiffness and Denies tingling Neuro Reports abnormal gait, Denies dizziness, Denies numbness and Denies tingling Endo Denies palpitations Physical Exam Vital Signs: Last Vital Signs Pulse 74 11/20/23 08:15 BP 140/72 H 11/20/23 08:15 Const Other: morbidly obese, sitting in wheelchair General: cooperative and no acute distress Orientation/consciousness: patient oriented x3 Neck Neck: Yes normal visual inspection Resp Effort & Inspection: normal respiratory effort Auscultation: clear to auscultation bilaterally, no rales, no rhonchi and no wheezes Cardio Jugular venous distension: no JVD Rate: regular rate Rhythm: regular rhythm Heart sounds: S1 normal heart sound present, S2 normal heart sound present, no murmurs and no rubs Neuro General: patient oriented x3 Extrem General: Yes normal to inspection Psych Appearance: grossly normal Mental Status: mental status grossly normal Speech and movement: Normal speech and movement present Office Procedures EKG Details: Today, read by me, normal sinus rhythm, sinus arrhythmia, right bundle branch block, rate 74, QTC 459 milliseconds [id number], Complete Assessment & Plan Assessment & Plan (1) Coronary artery calcification: Code(s): I25.10 - Atherosclerotic heart disease of [place] coronary artery without angina pectoris; I25.84 - Coronary atherosclerosis due to calcified coronary lesion Category: Medical Plan: History of coronary artery calcifications as seen on CT scan. She did undergo a pharmacological nuclear stress test on 06/05/2022 which showed likely normal myocardial perfusion imaging. She has been treated with risk factor modification. She is on aspirin, atenolol, lisinopril. She is on atorvastatin 40 mg daily with ideal LDL goal less than 70. Last labs done 09/25/2022 showed LDL 89. She continues to smoke periodically. She is still morbidly obese and unable to get on our scale today. Reviewed ongoing med compliance, benefits of weight loss, increasing physical activity, smoking cessation. Will have her update labs today including CMP, CBC, lipids. Signs and symptoms of angina reviewed. Cardiology follow-up 1 year, sooner if needed. (2) Essential hypertension: Code(s): I10 - Essential (primary) hypertension Category: Medical Plan: Mildly elevated today. She tells me that she feels stressed at this visit. It is a challenge for her to get out of the house and transported here. Her son is helping her today. She reports compliance with her meds. Will check labs today. Low-salt diet reviewed (3) Hyperlipidemia: Code(s): E78.5 - Hyperlipidemia, unspecified Category: Medical Plan: Pray LDL goal less than 70. Checking fasting lipids today. (4) Morbid obesity: Code(s): E66.01 - Morbid (severe) obesity due to excess calories Category: Medical Plan: As above (5) Obstructive sleep apnea: Code(s): G47.33 - Obstructive sleep apnea (adult) (pediatric) Category: Medical Plan: She reports compliance with CPAP Plan Time spent on chart review, documentation, interview and assessment Orders: Orders Comprehensive Met. Panel Today I25.10 - Atherosclerotic heart disease of [place] coronary artery without angina pectoris, I25.84 - Coronary atherosclerosis due to calcified coronary lesion Complete Blood Count Auto Diff Today I25.10 - Atherosclerotic heart disease of [place] coronary artery without angina pectoris, I25.84 - Coronary atherosclerosis due to calcified coronary lesion Lipid Panel Today I25.10 - Atherosclerotic heart disease of [place] coronary artery without angina pectoris, I25.84 - Coronary atherosclerosis due to calcified coronary lesion Medications: New atenolol 50 mg PO DAILY 90 tabs 3RF Discontinued atenolol Discontinued Reason: Doctor's Order 25 mg (1/2 x 50 mg) PO BID 90 tabs 1RF R06.09 - Other forms of dyspnea Coding Level of Care Code Est Pt Level 4 (10894) Diagnoses Coronary artery calcification I25.10; I25.84 Essential hypertension I10 Hyperlipidemia E78.5 Morbid obesity E66.01 Obstructive sleep apnea G47.33 CPT Codes EKG - CPT: 30920-[id number], Complete ([id number]) Time Spent (min) 36
== END 2023-11-20 08:45 | disposition home or self-care (01) ==
PROVIDERS: PCP Internal Medicine; Visit Provider Nurse Practitioner Family
DX: I25.10 Atherosclerotic heart disease of native coronary artery without angina pectoris (principal); I25.84 Coronary atherosclerosis due to calcified coronary lesion; I10 Essential (primary) hypertension; E78.5 Hyperlipidemia, unspecified; E66.01 Morbid (severe) obesity due to excess calories; G47.33 Obstructive sleep apnea (adult) (pediatric)
CPT/HCPCS: 93010; 99214

== ENCOUNTER 2023-12-15 16:59 | Emergency (ER) | payer MEDICARE, MEDICAID, SELFPAY ==
--- NOTE | ~2023-12-15 | XR_ITS ---
EXAMINATION: CHEST 2 VIEWS CLINICAL INFORMATION: sob. COMPARISON: 01/17/2019. TECHNIQUE: PA and lateral views of the chest obtained. FINDINGS: The lungs are well expanded. No focal infiltrate, effusion, edema, or pneumothorax. Cardiac silhouette within normal limits for size although there is persistent central vascular prominence with prompt tapering suggesting a component of underlying pulmonary arterial hypertension but no overt edema. No acute bony abnormality seen XR/XR chest 2V IMPRESSION: Chronic appearing changes similar to the 01/17/2019 study. No acute superimposed process. Electronically signed by: Anibal Mendez MD 12/15/2023 08:49 PM EDT RP
--- NOTE | ~2023-12-15 | XR_ITS ---
Examination: XR hip LT w PEL1V (accession [id number]), XR lumbar spine 2-3V (accession [id number]) Indication: severe pain Comparison: No pertinent prior studies are currently available for comparison. Technique: 2 frontal and 2 lateral views of the lumbosacral spine obtained as well as a frontal view of the pelvis with coned-down frontal and frog-leg lateral views of the left hip. Findings: Lumbar spine: Bones are normal anatomic alignment with no acute appearing fracture or spondylolisthesis. There is mild grade 1 anterolisthesis of L4 on L5 with significant sclerotic degenerative changes in the posterior elements at this level more likely due to chronic change. Vacuum phenomenon at L4/5 also suggests a more chronic process. Vertebral body heights are preserved. Loss of disc height more so at L5/S1. Vascular calcification within the normal-caliber abdominal aorta. Unremarkable bowel gas pattern. Pelvis/left hip: Both femoral heads are well-seated within their respective acetabula. No acute fracture or dislocation seen. Mild degenerative changes within both hips. Unremarkable bowel gas pattern. XR/XR lumbar spine 2-3V Impression: Chronic appearing and degenerative changes to the lower lumbar spine. Phenomenon at L4/5 also suggests a more chronic process. No acute fracture or spondylolisthesis. Mild degenerative changes in the hips. Electronically signed by: Anibal Mendez MD 12/15/2023 08:51 PM EDT
--- NOTE | ~2023-12-15 | XR_ITS ---
Examination: XR hip LT w PEL1V (accession [id number]), XR lumbar spine 2-3V (accession [id number]) Indication: severe pain Comparison: No pertinent prior studies are currently available for comparison. Technique: 2 frontal and 2 lateral views of the lumbosacral spine obtained as well as a frontal view of the pelvis with coned-down frontal and frog-leg lateral views of the left hip. Findings: Lumbar spine: Bones are normal anatomic alignment with no acute appearing fracture or spondylolisthesis. There is mild grade 1 anterolisthesis of L4 on L5 with significant sclerotic degenerative changes in the posterior elements at this level more likely due to chronic change. Vacuum phenomenon at L4/5 also suggests a more chronic process. Vertebral body heights are preserved. Loss of disc height more so at L5/S1. Vascular calcification within the normal-caliber abdominal aorta. Unremarkable bowel gas pattern. Pelvis/left hip: Both femoral heads are well-seated within their respective acetabula. No acute fracture or dislocation seen. Mild degenerative changes within both hips. Unremarkable bowel gas pattern. XR/XR hip LT w PEL1V Impression: Chronic appearing and degenerative changes to the lower lumbar spine. Phenomenon at L4/5 also suggests a more chronic process. No acute fracture or spondylolisthesis. Mild degenerative changes in the hips. Electronically signed by: Anibal Mendez MD 12/15/2023 08:51 PM EDT
--- NOTE | 2023-12-15 18:18 | ED_ITS ---
HPI - Back Pain/Injury General Chief Complaint: Back Pain/Injury Stated Complaint: Hip and knee pain/Trouble breathing Time Seen by Provider: 12/15/23 22:01 Source: patient and family Mode of arrival: ambulatory Limitations: no limitations History of Present Illness ED Provider: Dr. Cruz HPI Narrative: Patient is an obese female with COPD who presents with left back and leg pain. Patient denies trauma, in addition she is a daily smoker not on oxygen, She is short of breath at baseline with any exertion. MD elicited complaint: back pain Pertinent past history: prior back pain Onset (ago): week(s) Timing: constant Severity: moderate Related Data Home Medications ?Medication ?Instructions ?Recorded ?Confirmed aspirin 81 mg tablet 81 mg PO DAILY 02/26/20 11/20/23 Previous Rx's ?Medication ?Instructions ?Recorded cetirizine 10 mg tablet 10 mg PO DAILY PRN Cold Symptoms 09/23/21 #90 tabs furosemide 20 mg tablet 20 mg PO QAM PRN edema #30 tabs 10/23/21 fluticasone 250 mcg-salmeterol 50 1 inh inhalation Q12H #60 ea 07/18/22 mcg/dose blistr powdr for inhalation (Advair Diskus) cyclobenzaprine 10 mg tablet 5 mg (1/2 x 10 mg) PO BID PRN 03/20/23 muscle spasm #30 tabs ibuprofen 800 mg tablet 800 mg PO DAILY PRN for pain #90 09/17/23 tabs atenolol 50 mg tablet 50 mg PO DAILY #90 tabs 11/20/23 atorvastatin 40 mg tablet 40 mg PO DAILY #90 tabs 12/11/23 lisinopril 40 mg tablet 40 mg PO DAILY #90 tabs 12/15/23 gabapentin 100 mg capsule 100 mg PO TID #60 caps 12/16/23 Allergies Allergy/AdvReac Type Severity Reaction Status Date / Time Cortisone AdvReac Unknown leg turned Verified 12/15/23 18:21 black naproxen [From NAPROSYN] AdvReac Unknown DEPRESSION , Verified 12/15/23 18:21 severe depression, extreme fatgue and drepression Review of Systems 2 Review of Systems: Yes all other systems are reviewed and are negative Neurologic: Denies Sensory deficit (Neuro) PMFSH Past Medical History Medical History Obstructive sleep apnea Difficulty walking Morbid obesity Annual visit for general adult medical examination with abnormal findings Knee pain, right Change in vision Persistent cough for 3 weeks or longer 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 mass Osteopenia of left femoral neck Vitamin D deficiency Left wrist fracture Spondylosis of lumbar region without myelopathy or radiculopathy Distal radius fracture, left Psoriasis Adenomyosis of uterus Ventral hernia Fibromyalgia Environmental and seasonal allergies CHAS on CPAP Urinary, incontinence, stress female Osteoarthritis of knees, bilateral Hyperlipidemia Essential hypertension Surgical History H/O carpal tunnel repair Torn ACL History of total abdominal hysterectomy and bilateral salpingo-oophorectomy History of laparoscopic cholecystectomy Family History Family History Father CAD (coronary artery disease) CVD (cardiovascular disease) Stroke Mother History of CVA (cerebrovascular accident) Brother No problems noted. Brother No problems noted. Son No problems noted. Social History Social History Housing: House Alcohol intake: former Year quit: 2020 Patient Tobacco Use Status: Current someday Tobacco user (Occasionally every 1- 2 months when she has the craving) Cigarettes Per Day: 2 Years Smoked: 40 +/- Smoked in Last 30 Days: Yes e-Cigarette/Vaping Use: Never Used Second Hand Smoke Exposure: Yes Substance Use Type: Marijuana Advance Directives: Yes Advance Directives on File: Yes Advance Directives Date on File: 02/28/20 Do you have a plan to hurt others: No Plan Current occupational status: disabled Current occupation: rt handed Cognitive needs: No Hearing needs: No Vision needs: Yes Physical Exam 2 Vital Signs: Vital Signs: Last Vital Signs Temp 98.2 F 12/15/23 21:49 Pulse 78 12/15/23 23:37 Resp 16 12/15/23 23:37 BP 154/82 H 12/15/23 21:49 Pulse Ox 86 L 12/15/23 21:49 O2 Del Method Nasal Cannula 12/15/23 21:49 O2 Flow Rate 2 12/15/23 21:49 BMI result Body Mass Index 46.3 Const: Other: unhealthy obese female looking older than stated age Orientation/consciousness: oriented to person and patient oriented x3 L imitations: no limitations HEENT: Head: Yes normal to inspection Ears: external ears normal General nose exam: Normal external nose present Mouth: Normal oral and palatal mucosa present and oropharynx normal Throat: Yes posterior oropharynx normal Eyes: General: appearance normal, both eyes and all related structures Neck: Other: supple Neck: Yes normal visual inspection Chest: Chest palpation & inspection: normal inspection of the chest Resp: Other: distant lung sounds slight wheeze Cardio: Jugular venous distension: no JVD Rate: regular rate Rhythm: r egular rhythm Heart sounds: S1 normal heart sound present and S2 normal heart sound present GI: Inspection: Yes normal to inspection Palpation (GI): Soft to palpation, nontender and No hepatosplenomegaly present Auscultation: normal bowel sounds Back/Spine/Pelvis: Other: left SI and severe sciatic pain to palpation Skin: General skin exam: no rashes or lesions noted Neuro: General: oriented to person and patient oriented x3 Cranial nerves: Yes CN's II-XII intact bilaterally Motor exam (neuro): 5/5 motor strength present throughout Sensory Exam: No Sensory deficit (Neuro) Extrem: General: Yes normal to inspection Psych: Appearance: grossly normal Course Course Course Narrative: This is a Rapid Medical Examination (RME) performed by Carl Reyes PA-C in triage. Full HPI, ROS, assessment and treatment plan per primary provider in the Main ED. 68 yo female with history of morbid obesity, CHAS, HTN, HLD, fibromyalgia, COPD, knee osteoarthritis who presents to the ER for evaluation of severe lower back pain, left hip pain for the last 3 days. when the pain is severe she has SOB and difficultly breathing. no chest pain. spo2 90 % in triage. appears uncomfortable. Plan: CXR, XR lumbar spine and hip, labs and EKG Reevaluation(s) Reevaluation #1: Patient improving after toradol shot, not requiring 02 after nebulized treatment will dc home Time: 00:20 Medications Administered Discontinued Medications Generic Name Dose Route Start Last Admin Trade Name Freq PRN Reason Stop Dose Admin Albuterol Sulfate 2.5 mg/ 0 mg 12/15/23 23:30 12/15/23 23:34 Albuterol/Ipratropium 3 ml INHALE 12/15/23 23:31 5 dose ONCE ONE Administration Cyclobenzaprine HCl 10 mg 12/15/23 22:16 12/15/23 22:24 Cyclobenzaprine Hcl 10 Mg Tablet PO 12/15/23 22:17 10 mg ONCE ONE Administration Ketorolac Tromethamine 60 mg 12/15/23 22:16 12/15/23 22:24 Ketorolac Tromethamine 60 Mg/2 Ml Vial IM 12/15/23 22:17 60 mg ONCE ONE Administration Medical Decision Making Differential Diagnosis Differential Diagnoses: The differential diagnosis associated with the presentation includes (radicular back pain, sciatica, COPD exacerbation) Admission/Observation Consideration of admission/observation: Escalation of care including admission/observation considered (upon arrival patient considered for admission) Lab Data 12/15/23 18:53 12/15/23 18:53 Labs: Lab Results 12/15/23 12/15/23 12/15/23 Range/Units 18:53 18:56 20:24 WBC 11.3 H (4.8-10.8) X10*3/uL RBC 5.04 (4.20-5.50) X10*6/uL Hgb 15.4 (12.0-16.0) g/dl Hct 46.9 (37.0-47.0) % MCV 93.1 (80.0-98.0) fL MCH 30.6 (27.0-33.0) pg MCHC 32.8 (31.0-35.0) g/dl RDW 13.2 (11.0-16.0) % Plt Count 146 L (160-400) X10*3/uL MPV 10.4 (9.4-12.3) fL Immature Gran % (Auto) 0.3 (0.0-0.4) % Neut % (Auto) 76.3 H (45-73) % Lymph % (Auto) 17.3 L (20-40) % [place] % (Auto) 4.9 (2-11) % Eos % (Auto) 1.0 (0-4) % Baso % (Auto) 0.2 (0-2) % Lymph # (Auto) 2.0 (1.2-4.9) X10*3/uL [place] # (Auto) 0.6 (0.1-1.2) X10*3/uL Eos # (Auto) 0.1 (0.0-0.4) X10*3/uL Baso # (Auto) 0.0 (0.0-0.2) X10*3/uL Abs Immat Gran (auto) 0.03 (0.00-0.03) X10*3/uL Absolute Neuts (auto) 8.6 H (2.0-8.3) x10*3/uL Absolute Nucleated RBC 0.000 (0.0-0.012) X10*3/uL Nucleated RBC % (auto) 0.0 (0.0-0.2) /100WBC VBG pH 7.41 (7.32-7.43) VBG pCO2 51 mmHg VBG pO2 46 mmHg VBG HCO3 32 H (22-26) mmol/L VBG O2 Saturation 80.0 % VBG Base Excess 6.7 mmol/L Sodium 143 (135-145) mmol/L Potassium 3.6 (3.3-5.1) mmol/L Chloride 106 (96-108) mmol/L Carbon Dioxide 30 H (22-29) mmol/L Anion Gap 11 L (12-20) BUN 11 (9-16) mg/dL Creatinine 0.71 (0.5-1.4) mg/dL Estim Creat Clear Calc 97.9 Estimated GFR > 60 Random Glucose 111 (60-115) mg/dL Calcium 9.2 (8.4-10.2) mg/dL Magnesium 1.9 (1.6-2.6) mg/dL Total Bilirubin 1.5 H (0.0-1.0) mg/dL Direct Bilirubin 0.5 (0.0-0.5) mg/dL AST 21 (5-31) U/L ALT 24 (0-31) U/L Alkaline Phosphatase 101 (39-117) U/L Troponin I High Sens 6.9 (<3.5-17.0) ng/L B-Natriuretic Peptide 425 H (<100) pg/mL Total Protein 6.9 (6.5-8.0) g/dL Albumin 3.8 (3.5-5.0) g/dL Urine Color Yellow Urine Appearance Clear Urine pH 8.0 (5.0-9.0) Ur Specific [place] <= 1.005 (1.005-1.025) Urine Protein Negative (Neg-Trace) mg/dL Urine Glucose (UA) Negative (Negative) mg/dL Urine Ketones Negative (Negative) mg/dL Urine Blood Negative (Negative) Urine Nitrite Negative (Negative) Ur Leukocyte Esterase Negative (Negative) ABG Data ABG Results: VBG shows patient is a chronic retainer with elevated CO2 but normal pH. Independent Interpretation I performed an independent interpretation of an: EKG (sinus 68, rBBB, minor st segment changes) and Plain X-Ray (cxr: no infiltrate) Independent Historian Clinical information obtained from an independent historian. History obtained from or confirmed by: Other (son) Prescription Management I considered prescription management with: Antibiotic (no evidence of infiltrate on CXR will not start abx) Chronic Conditions Patient?s care impacted by: Other (COPD) Discharge Plan Discharge Clinical Impression: Lumbar radiculopathy, Strain of lumbar region, Sciatica, Chronic obstructive pulmonary disease Patient Disposition: Home, Self-Care Instructions: Sciatica (ED), COPD (Chronic Obstructive Pulmonary Disease) (ED), Acute Low Back Pain (ED), Lumbar Radiculopathy (ED), Back Pain (ED) Prescriptions: New gabapentin 100 mg capsule 100 mg PO TID Qty: 60 0RF No Action fluticasone propion-salmeterol [Advair Diskus] 250-50 mcg/dose blister with device 1 inh inhalation Q12H Qty: 60 1RF cyclobenzaprine 10 mg tablet 5 mg PO BID PRN (Reason: muscle spasm) Qty: 30 0RF ibuprofen 800 mg tablet 800 mg PO DAILY PRN (Reason: for pain) Qty: 90 1RF atorvastatin 40 mg tablet 40 mg PO DAILY Qty: 90 0RF Rx Instructions: please obtained fasting blood work for refills lisinopril 40 mg tablet 40 mg PO DAILY Qty: 90 3RF aspirin 81 mg Tablet 81 mg PO DAILY cetirizine 10 mg tablet 10 mg PO DAILY PRN (Reason: Cold Symptoms) Qty: 90 0RF furosemide 20 mg tablet 20 mg PO QAM PRN (Reason: edema) Qty: 30 0RF atenolol 50 mg tablet 50 mg PO DAILY Qty: 90 3RF Referrals: Jeanette Palma MD [Primary Care Provider] - 1 week Print Language: Cameroonian
[2023-12-15 18:19] VITALS: BP 134/83; PULSE 73; RESP 22; TEMP 37; O2SAT 90; BMI 46.3
--- NOTE | 2023-12-15 18:21 | ECG_ITS ---
Test Reason : SOB Blood Pressure : / mmHG Vent. Rate : 067 BPM Atrial Rate : 067 BPM P-R Int : 136 ms QRS Dur : 118 ms QT Int : 446 ms P-R-T Axes : 000 059 -11 degrees QTc Int : 471 ms Normal sinus rhythm Low voltage QRS Incomplete right bundle branch block Cannot rule out Anterior infarct (cited on or before 15-DEC-2023) Marked ST abnormality, possible lateral subendocardial injury Abnormal ECG When compared with ECG of 26-FEB-2020 19:30, No significant change was found Referred By: Tejal Reyes Electronically Signed By:MERCED ZEE
[2023-12-15 18:55] LABS: MANUAL DIFF FLAG NO
[2023-12-15 19:00] LABS: Basophils Percent Auto 0.2 % (0-2); Eosinophils Absolute Auto 0.1 X10*3/uL (0.0-0.4); Hematocrit 46.9 % (37.0-47.0); Hemoglobin 15.4 g/dl (12.0-16.0); Imm Gran Abs Auto 0.03 X10*3/uL (0.00-0.03); Imm Gran Pct Auto 0.3 % (0.0-0.4); Lymphocytes Percent Auto 17.3 % (20-40); Mean Corpuscular HGB Conc 32.8 g/dl (31.0-35.0); Mean Corpuscular Hemoglobin 30.6 pg (27.0-33.0); Mean Corpuscular Volume 93.1 fL (80.0-98.0); Mean Platelet Volume 10.4 fL (9.4-12.3); Monocytes Absolute Auto 0.6 X10*3/uL (0.1-1.2); Monocytes Percent Auto 4.9 % (2-11); Neutrophils Absolute Auto 8.6 x10*3/uL (2.0-8.3); Neutrophils Percent Auto 76.3 % (45-73); Platelet Count 146 X10*3/uL (160-400); Red Blood Count 5.04 X10*6/uL (4.20-5.50); Red Cell Distribution Width 13.2 % (11.0-16.0); White Blood Count 11.3 X10*3/uL (4.8-10.8)
[2023-12-15 19:01] LABS: Venous Blood Gas Refer to POC result
[2023-12-15 19:01] LABS: VBG Base Excess 6.7 mmol/L; VBG HCO3 32 mmol/L (22-26); VBG pCO2 51 mmHg; VBG pH 7.41 (7.32-7.43); VBG pO2 46 mmHg
[2023-12-15 19:17] LABS: Alanine Aminotransferase 24 U/L (0-31); Albumin Level 3.8 g/dL (3.5-5.0); Alkaline Phosphatase 101 U/L (39-117); Anion Gap 11 (12-20); Aspartate Amino Transferase 21 U/L (5-31); Bilirubin Direct 0.5 mg/dL (0.0-0.5); Bilirubin Total 1.5 mg/dL (0.0-1.0); Blood Urea Nitrogen 11 mg/dL (9-16); Calcium 9.2 mg/dL (8.4-10.2); Carbon Dioxide 30 mmol/L (22-29); Chloride 106 mmol/L (96-108); Creatinine Clr Calc Pharmacy 97.9; Estimated Glomerular Filt Rate > 60; Glucose Random 111 mg/dL (60-115); Magnesium 1.9 mg/dL (1.6-2.6); Potassium 3.6 mmol/L (3.3-5.1); Sodium 143 mmol/L (135-145); Total Protein 6.9 g/dL (6.5-8.0)
[2023-12-15 19:21] LABS: B Type Natriuretic Peptide 425 pg/mL (<100)
[2023-12-15 19:24] LABS: Troponin-I High Sensitivity 6.9 ng/L (<3.5-17.0)
[2023-12-15 20:41] LABS: Appearance Urine Clear; Color Urine Yellow; Glucose Urine UA Negative (Negative); Leukocyte Esterase Urine Negative (Negative); Nitrite Urine Negative (Negative); Specific Gravity - Urine <= 1.005 (1.005-1.025); Urine Blood Negative (Negative); Urine Ketones Negative (Negative); Urine Protein Negative (Neg-Trace)
[2023-12-15 21:49] VITALS: BP 154/82; PULSE 75; RESP 24; TEMP 36.8; O2SAT 86
[2023-12-15] MEDS: Ketorolac Tromethamine 60 MG/2 ML VIAL IM (22:24)
[2023-12-15] MEDS: Cyclobenzaprine HCl 10 MG TABLET PO (22:24)
[2023-12-15] MEDS: Albuterol Sulfate 2.5 MG, Albuterol/Iprat 2.5/0.5MG 3 ML 3 ML INHALE (23:34)
[2023-12-15 23:37] VITALS: PULSE 78; RESP 16; O2SAT 93
[2023-12-16 00:35] VITALS: BP 153/84; PULSE 75; RESP 22; TEMP 36.8; O2SAT 90
[2023-12-16] MEDS: Gabapentin 100 MG CAPSULE PO (00:37)
== END 2023-12-16 00:41 | disposition home or self-care (01) ==
PROVIDERS: Physician Assistant; Emergency Provider Emergency Medicine; PCP Internal Medicine
DX: M54.16 Radiculopathy, lumbar region (principal); J44.9 Chronic obstructive pulmonary disease, unspecified; R06.02 Shortness of breath; R94.31 Abnormal electrocardiogram [ECG] [EKG]; M25.552 Pain in left hip; M54.50 Low back pain, unspecified; R07.89 Other chest pain; Z79.899 Other long term (current) drug therapy
CPT/HCPCS: 36415; 71046; 72100; 73502; 80048; 80076; 81003; 82803; 83735; 83880; 84484; 85025; 93005; 94640; 96372; 99284; 99285; J1885

== ENCOUNTER 2024-07-19 08:07 | Outpatient (REF) | payer MEDICARE, MEDICAID, SELFPAY ==
--- OUTSIDE RECORDS SUMMARY | 2024-07-19 10:46 | XMS_ITS | Clinical Summary ---
Author Organization [facility] it Address [address] [place] [address] Care Team Providers Care Plate Shop Helper Name Role Phone Fátima Smalls MD Primary Care Provider [phone] Social History Tobacco Use Types Packs/Day Years [...] age to complete this topic Care Teams Plate Shop Helper Relationship Specialty Start Date End Date Fátima Smalls MD PCP - General Internal Medicine 07/14/17
--- OUTSIDE RECORDS SUMMARY | 2024-07-19 10:46 | XMS_ITS ---
Author Organization [facility] Care Team Providers Care Clinical Application Specialist Name Role Phone Elizabeth Dupree Unavailable Unavailable Mayelin Schuster Unavailable Unavailable Columba Blancas Unavailable Unavailable Allergies and adverse reactions Code CodeSystem Substance Reaction Severity StartDate Concern Status Naprosyn Unknown 02/28/2020 active 2878 RXNORM Cortisone Unknown 02/28/2020 active Care Team Name Role Address Phone Organization Dates Mayelin Schuster PCP [address], [place], [address], [facility] (Office): [facility] 02/28/2020 - 03/01/2020 Elizabeth Dupree Attending Physician [address] [place] [address], [id number], [place] (Office): [facility] 02/28/2020 - 03/01/2020 Columba Blancas Attending Physician [address] [place] [address], [phone], [facility] (Office): [facility] 02/28/2020 - 03/01/2020 Mental Status Section Date Assessment Total Score Description 03/01/2020 CAM 0 No delirium ind icated 03/01/2020 BIMS 15 cognitively int act CAM 0 No delirium ind icated Problems Problem # Description Date of onset Resolved Date Code CodeSystem Concern Status 1 COLLES' FRACTURE OF UNSPECIFIED RADIUS, INITIAL ENCOUNTER FOR CLOSED FRACTURE 02/28/[address] active 2 ESSENTIAL (PRIMARY) HYPERTENSION 02/28/[address] active 3 FIBROMYALGIA 02/28/[address] acti ve 4 LOW BACK PAIN 02/28/[address] act [place]rence 5 MORBID (SEVERE) OBESITY DUE TO EXCESS CALORIES 02/28/[address] active 6 OBSTRUCTIVE SLEEP APNEA (ADULT) (PEDIATRIC) 02/28/[address] active 7 PURE HYPERCHOLESTEROLEM IA, UNSPECIFIED 02/28/[address] active 8 UNSPECIFIED FRACTURE OF THE LOWER END OF LEFT RADIUS, SUBSEQUENT ENCOUNTER FOR CLOSED FRACTURE WITH ROUTINE HEALING 02/28/[address] active 9 UNSPECIFIED OSTEOARTHRITIS, UNSPECIFIED SITE 02/28/[address] active 10 URINARY TRACT INFECTION, SITE NOT SPECIFIED 02/28/[address] active Reason for Referral No Reasons for Referral Entered Social History Social History Observation Description Start Date End Date Code Code System Current Smoking Status Tobacco smoking consumption unknown 893059457 SNOMED CT Sex Assigned At Female 1955 [address]-6 [facility] Vital Signs Code Code System Vitals Name Values and Units Timing Information 21603-8 LOINC Pain Level Value=2.0 03/01/2020 18034-8 LOINC O2 % BldC Oximetry Value=98.0 Units= % 03/01/2020 9279-1 LOINC Respiratory Rate Value=20.0 Units=/m in 03/01/2020 8462-4 LOINC Blood Pressure-Diastolic Value=58 Un its=mmHg 03/01/2020 8480-6 LOINC Blood Pressure-Systolic Mctsy=219 Un its=mmHg 03/01/2020 8310-5 LOINC Body Temperature Value=96.3 Units=?? F 03/01/2020 8867-4 LOINC Heart rate Value=80.0 Units=/min 05/2019 8302-2 LOINC Height Value=66.0 Units=Inches 02/28/2020 26494-5 LOINC Weight Gunna=075.0 Units=Lbs 03/2019
[2024-07-19 13:14] LABS: MANUAL DIFF FLAG NO
[2024-07-19 13:29] LABS: Basophils Percent Auto 0.3 % (0-2); Eosinophils Absolute Auto 0.2 X10*3/uL (0.0-0.4); Eosinophils Percent Auto 2.2 % (0-4); Hematocrit 52.8 % (37.0-47.0); Hemoglobin 16.5 g/dl (12.0-16.0); Imm Gran Abs Auto 0.03 X10*3/uL (0.00-0.03); Imm Gran Pct Auto 0.3 % (0.0-0.4); Lymphocytes Absolute Auto 2.5 X10*3/uL (1.2-4.9); Lymphocytes Percent Auto 26.9 % (20-40); Mean Corpuscular HGB Conc 31.3 g/dl (31.0-35.0); Mean Corpuscular Hemoglobin 29.4 pg (27.0-33.0); Mean Platelet Volume 11.2 fL (9.4-12.3); Monocytes Absolute Auto 0.5 X10*3/uL (0.1-1.2); Monocytes Percent Auto 4.8 % (2-11); Neutrophils Absolute Auto 6.1 x10*3/uL (2.0-8.3); Neutrophils Percent Auto 65.5 % (45-73); Platelet Count 152 X10*3/uL (160-400); Red Blood Count 5.62 X10*6/uL (4.20-5.50); Red Cell Distribution Width 14.4 % (11.0-16.0); White Blood Count 9.3 X10*3/uL (4.8-10.8)
[2024-07-19 13:50] LABS: B Type Natriuretic Peptide 427 pg/mL (<100)
[2024-07-19 14:11] LABS: Alanine Aminotransferase 8 U/L (0-31); Albumin Level 3.8 g/dL (3.5-5.0); Alkaline Phosphatase 103 U/L (39-117); Anion Gap 11 (12-20); Aspartate Amino Transferase 20 U/L (5-31); Bilirubin Total 1.7 mg/dL (0.0-1.0); Blood Urea Nitrogen 13 mg/dL (9-16); Calcium 9.3 mg/dL (8.4-10.2); Carbon Dioxide 32 mmol/L (22-29); Chloride 108 mmol/L (96-108); Cholesterol 142 mg/dL (<200); Estimated Glomerular Filt Rate > 60; Glucose Fasting 98 mg/dL (60-99); HDL Cholesterol 45 mg/dL (>40); LDL Cholesterol Calculated 81 mg/dL (<100); Potassium 4.3 mmol/L (3.3-5.1); Sodium 147 mmol/L (135-145); Total Protein 6.8 g/dL (6.5-8.0); Triglycerides 81 mg/dL (<150); Vitamin D 25-OH Total 39.7 ng/mL (>30)
== END 2024-07-19 08:08 | disposition home or self-care (01) ==
LOC: HO.HMGCLDS 08:07
PROVIDERS: PCP Internal Medicine; Visit Provider Internal Medicine
DX: R22.43 Localized swelling, mass and lump, lower limb, bilateral (principal); I10 Essential (primary) hypertension; R06.09 Other forms of dyspnea; H61.23 Impacted cerumen, bilateral; E78.5 Hyperlipidemia, unspecified; E66.01 Morbid (severe) obesity due to excess calories; Z68.43 Body mass index [BMI] 50.0-59.9, adult; G47.33 Obstructive sleep apnea (adult) (pediatric); Z79.899 Other long term (current) drug therapy; Z00.01 Encounter for general adult medical examination with abnormal findings; I25.10 Atherosclerotic heart disease of native coronary artery without angina pectoris; I25.84 Coronary atherosclerosis due to calcified coronary lesion; Z78.0 Asymptomatic menopausal state; Z87.81 Personal history of (healed) traumatic fracture
CPT/HCPCS: 36415; 80053; 80061; 82306; 83880; 85025; 99212

== ENCOUNTER 2024-07-19 08:07 | Outpatient (AMB) | payer MEDICARE, MEDICAID, SELFPAY ==
--- OUTSIDE RECORDS SUMMARY | 2024-07-19 08:18 | XMS_ITS ---
Author Organization [facility] Care Team Providers Care Supervisor Process Testing Name Role Phone Elizabeth Dupree Unavailable Unavailable Mayelin Schuster Unavailable Unavailable Columba Blancas Unavailable Unavailable Allergies and adverse reactions Code CodeSystem Substance Reaction Severity StartDate Concern Status Naprosyn Unknown 02/28/2020 active 2878 RXNORM Cortisone Unknown 02/28/2020 active Care Team Name Role Address Phone Organization Dates Mayelin Schuster PCP [address] [facility] [address], [place], [address], [facility] (Office): [facility] 02/28/2020 - 03/01/2020 Elizabeth Dupree Attending Physician [address] [place] [address], [id number], [place] (Office): [facility] 02/28/2020 - 03/01/2020 Columba Blancas Attending Physician [address] [place] [address], [id number], [facility] (Office): [facility] 02/28/2020 - 03/01/2020 Mental Status Section Date Assessment Total Score Description 03/01/2020 CAM 0 No delirium ind icated 03/01/2020 BIMS 15 cognitively int act CAM 0 No delirium ind icated Problems Problem # Description Date of onset Resolved Date Code CodeSystem Concern Status 1 COLLES' FRACTURE OF UNSPECIFIED RADIUS, INITIAL ENCOUNTER FOR CLOSED FRACTURE 02/28/[address] active 2 ESSENTIAL (PRIMARY) HYPERTENSION 02/28/[address] active 3 FIBROMYALGIA 02/28/[address] acti ve 4 LOW BACK PAIN 02/28/[address] act lawrence 5 MORBID (SEVERE) OBESITY DUE TO EXCESS CALORIES 02/28/[address] active 6 OBSTRUCTIVE SLEEP APNEA (ADULT) (PEDIATRIC) 02/28/[address] active 7 PURE HYPERCHOLESTEROLEM IA, UNSPECIFIED 02/28/[address] active 8 UNSPECIFIED FRACTURE OF THE LOWER END OF LEFT RADIUS, SUBSEQUENT ENCOUNTER FOR CLOSED FRACTURE WITH ROUTINE HEALING 02/28/[address] active 9 UNSPECIFIED OSTEOARTHRITIS, UNSPECIFIED SITE 02/28/[address] active 10 URINARY TRACT INFECTION, SITE NOT SPECIFIED 02/28/[address] active Reason for Referral No Reasons for Referral Entered Social History Social History Observation Description Start Date End Date Code Code System Current Smoking Status Tobacco smoking consumption unknown 303874804 SNOMED CT Sex Assigned At Female 1955 10643-0 [facility] Vital Signs Code Code System Vitals Name Values and Units Timing Information 53657-4 LOINC Pain Level Value=2.0 03/01/2020 97627-0 LOINC O2 % BldC Oximetry Value=98.0 Units= % 03/01/2020 9279-1 LOINC Respiratory Rate Value=20.0 Units=/m in 03/01/2020 8462-4 LOINC Blood Pressure-Diastolic Value=58 Un its=mmHg 03/01/2020 8480-6 LOINC Blood Pressure-Systolic Lwnxc=551 Un its=mmHg 03/01/2020 8310-5 LOINC Body Temperature Value=96.3 Units=?? F 03/01/2020 8867-4 LOINC Heart rate Value=80.0 Units=/min 05/2019 8302-2 LOINC Height Value=66.0 Units=Inches 02/28/2020 60662-3 LOINC Weight Laf[place]=685.0 Units=Lbs 03/2019
--- OUTSIDE RECORDS SUMMARY | 2024-07-19 08:18 | XMS_ITS | Clinical Summary ---
Author Organization [facility] it Address [address] [place] [address] Care Team Providers Care Metallurgical Laboratory Assistant Name Role Phone Fátima Smalls MD Primary Care Provider [phone] Social History Tobacco Use Types Packs/Day Years Used Date Smoking Tobacco: Never Assessed Comments Unknown Sex and Gender Information Value Date Recorded Sex Assigned at Not on file Legal Sex Female 10:52 AM EST Gender Identity Not on file Sexual Orientation Not on file Plan of Treatment Health Maintenance Due Date Last Done Comments Breast Cancer Screening 1955 DTaP,Tdap,and Td Vaccines (1 - Tdap) 10/04/1974 Pneumococcal Vaccine: 50+ Ye ars (1 of 1 - PCV) 10/04/2005 Zoster Vaccines (1 of 2) 10/04/2005 COVID-19 Vaccine ( - 2023-2 5 season) 2023 Influenza Vaccine (Season Ended) 2024 RSV Immunization Adult Patie nts (1 - 1-dose 75+ series) 10/04/2030 HIB Vaccines Aged Out No longer eligi ble based on patient's age to complete this topic HPV Vaccines Aged Out No longer eligi ble based on patient's age to complete this topic Hepatitis A Vaccines Aged Out No long er eligible based on patient's age to complete this topic Hepatitis B Vaccines Aged Out No long er eligible based on patient's age to complete this topic IPV Vaccines Aged Out No longer eligi ble based on patient's age to complete this topic MMR Vaccines Aged Out No longer eligi ble based on patient's age to complete this topic Meningococcal ACWY Vaccine Aged Out N o longer eligible based on patient's age to complete this topic Meningococcal B Vaccine Aged Out No l onger eligible based on patient's age to complete this topic RSV Immunization Patients Un tho 20 months Aged Out No longer eligible b ased on patient's age to complete this topic Varicella Vaccines Aged Out No longer eligible based on patient's age to complete this topic Care Teams Metallurgical Laboratory Assistant Relationship Specialty Start Date End Date Fátima Smalls MD PCP - General Internal Medicine 07/14/17
--- NOTE | 2024-07-19 08:42 | MHC.PC.OV ---
Vital Signs 07/19/24 08:46 Height 5 ft 4 in Weight 292 lb BMI 50.1 BP 124/80 Blood Pressure Location Rt brachial Position Sitting Respiration 17 Pulse 77 Pulse Source Pulse Oximeter Temp 97.9 F Temp Source Oral Pulse Oximetry (%) 93 Oxygen Delivery Method Room Air Intake Visit Reasons: c/o bilateral leg edema Intake Note: Pt is here today c/o bilateral leg edema and ? sinus inf Allergies Cortisone Adverse Reaction (Unknown, Verified 07/19/24 09:19) leg turned black naproxen [From NAPROSYN] Adverse Reaction (Unknown, Verified 07/19/24 09:19) DEPRESSION , severe depression, extreme fatgue and drepression Medication List - Last Reconciled 07/19/24 by Jeanette Palma MD aspirin 81 mg PO DAILY atenolol 50 mg PO DAILY atorvastatin 40 mg PO DAILY cetirizine 10 mg PO DAILY PRN cyclobenzaprine 5 mg (1/2 x 10 mg) PO BID PRN fluticasone propion-salmeterol 250-50 mcg/dose (Advair Diskus) 1 inh inhalation Q12H ibuprofen 800 mg PO DAILY PRN lisinopril 40 mg PO DAILY Tobacco use date assessed: 07/19/24 Dental Screening Dental Screen Date: 07/19/24 Did you have a dental visit in the last 12 months?: No Did you have a dental problem in the last 6 months where you did not have access to dental care?: No Was dental information given to patient?: No HPI HPI Comments History of Present Illness Details 68-year-old lady with history of hypertension, hyperlipidemia, obstructive sleep apnea and morbid obesity, here today complaining of swelling in both lower extremities accompanied by shortness of breath on [id number] exertion, which has been present now for the last several days. Has any wheezing, no cough, no chest pain reported. Patient states that the swelling in both lower extremity seems to improve with leg elevation. She has also been complaining of pain and decreased hearing coming from both ears [facility] Medical History (Updated 07/19/24 @ 09:31 by Jeanette Palma MD) Impacted cerumen of both ears Localized swelling of both lower legs Obstructive sleep apnea Difficulty walking Morbid obesity Annual visit for general adult medical examination with abnormal findings Knee pain, right Change in vision Persistent cough for 3 weeks or longer 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 mass Osteopenia of left femoral neck Vitamin D deficiency Left wrist fracture Spondylosis of lumbar region without myelopathy or radiculopathy Distal radius fracture, left Psoriasis Adenomyosis of uterus Ventral hernia Fibromyalgia Environmental and seasonal allergies CHAS on CPAP Urinary, incontinence, stress female Osteoarthritis of knees, bilateral Hyperlipidemia Essential hypertension Surgical History H/O carpal tunnel repair Torn ACL History of total abdominal hysterectomy and bilateral salpingo-oophorectomy History of laparoscopic cholecystectomy Family History Father CAD (coronary artery disease) CVD (cardiovascular disease) Stroke Mother History of CVA (cerebrovascular accident) Brother No problems noted. Brother No problems noted. Son No problems noted. Social History Housing: House Alcohol intake: former Year quit: 2020 Patient Tobacco Use Status: Current someday Tobacco user (Occasionally every 1-2 months when she has the craving) Cigarettes Per Day: 2 Years Smoked: 40 +/- e-Cigarette/Vaping Use: Never Used Second Hand Smoke Exposure: Yes Substance Use Type: Marijuana Advance Directives Date on File: 02/28/20 Current occupational status: disabled Current occupation: rt handed Cognitive needs: No Hearing needs: No Vision needs: Yes Questionnaire Thrive Questionnaire Date Thrive assessed: 09/25/22 LAZARO-7 AMB Questionnaire LAZARO-7 Date LAZARO - 7 assessed: 09/25/22 Source: Developed by Drs. Justin Lagunas, Bess Drew, Baldomero Vazquez and colleagues, with an educational blossom from [employer]. Review of Systems Const All systems reviewed & are unremarkable except as noted in HPI and below Physical exam (Primary Care) Vital Signs: Last Vital Signs Temp 97.9 F 07/19/24 08:46 Pulse 77 07/19/24 08:46 Resp 17 07/19/24 08:46 BP 124/80 07/19/24 08:46 Pulse Ox 93 07/19/24 08:46 Oxygen Delivery Method Room Air 07/19/24 08:46 BMI result Body Mass Index 50.1 Tobacco/Smoking Status: Tobacco use Status Tobacco use date assessed 07/19/24 07/19/24 08:54 Patient Tobacco Use Status Current someday Tobacco ( 07/19/24 08:44 Occasionally every 1-2 months when she has the craving) e-Cigarette/Vaping Use Never Used 07/19/24 08:44 Thrive Assessment: Date of Thrive Assessment Date Thrive assessed 09/25/22 07/19/24 08:44 Const Other: Alert oriented x3, no acute distress ambulatory with slow gait Nutritional Appearance: obese Orientation/consciousness: patient oriented x3 HENMT Other: Impacted dry cerumen noted in both ears Face and sinus: Yes face symmetric Mouth: Normal oral and palatal mucosa present, oropharynx normal and moist mucous membranes Eyes General: appearance normal, both eyes and all related structures Neck Other: Nonpalpable thyroid Neck: Yes normal visual inspection, Yes full ROM, Yes no lymphadenopathy and Yes supple Resp Auscultation: diminished lung sounds Cardio Other: S1-S2 present regular rate and rhythm GI Other: Obese, soft, nontender no mass palpated Neuro General: patient oriented x3, moves all extremities and no focal motor deficits Extrem Other: Nonpitting 2+ swelling in both lower extremity, no calf tenderness Coding Level of Care Code Est Pt Level 4 (18226) Diagnoses Essential hypertension I10 Localized swelling of both lower legs R22.43 Dyspnea on exertion R06.09 Impacted cerumen of both ears H61.23 Assessment & Plan Assessment & Plan (1) Essential hypertension: Code(s): I10 - Essential (primary) hypertension Category: Medical Plan: Blood pressure stable and controlled. Continued on atenolol 50 mg daily and lisinopril 40 mg daily. (2) Localized swelling of both lower legs: Code(s): R22.43 - Localized swelling, mass and lump, lower limb, bilateral Category: Medical Plan: Comprehensive metabolic panel and BNP ordered (3) Dyspnea on exertion: Code(s): R06.09 - Other forms of dyspnea Plan: Ordered CBC, BMP and comprehensive metabolic panel, O2 sat noted to be decreased, will start on furosemide 20 mg to take 1 tablet daily in a.m. advised to cut salt in her diet. Follow-up after 3 days if no improvement of symptoms (4) Impacted cerumen of both ears: Code(s): H61.23 - Impacted cerumen, bilateral Category: Medical Plan: Instructed to instill Debrox drops in both ears as directed, if no improvement of symptoms noted after 4 days, schedule appointment for cerumen removal Orders: Orders B Type Natriuretic Peptide 07/19/24 I10 - Essential (primary) hypertension, R06.09 - Other forms of dyspnea, R22.43 - Localized swelling, mass and lump, lower limb, bilateral Medications: New furosemide 20 mg PO QAM 30 tabs 0RF carbamide peroxide 6.5% (Debrox) 5 drps otic (ear) right Q12H 4 days 15 mL 0RF
[2024-07-19 08:46] VITALS: BP 124/80; PULSE 77; RESP 17; TEMP 36.6; O2SAT 93; BMI 50.1
== END 2024-07-19 09:43 | disposition home or self-care (01) ==
PROVIDERS: PCP Internal Medicine; Visit Provider Internal Medicine
DX: I10 Essential (primary) hypertension (principal); R22.43 Localized swelling, mass and lump, lower limb, bilateral; R06.09 Other forms of dyspnea; H61.23 Impacted cerumen, bilateral

== ENCOUNTER 2024-09-15 08:43 | Outpatient (AMB) | payer MEDICARE, MEDICAID, SELFPAY ==
[2024-09-15 08:46] VITALS: BP 122/68; PULSE 60; TEMP 36.6; O2SAT 90; BMI 50.2
--- NOTE | 2024-09-15 08:46 | MHC.OFFWIV ---
Intake Vital Signs 09/15/24 08:46 Height 5 ft 4 in Weight 292 lb 4 oz BMI 50.2 BP 122/68 Blood Pressure Location Rt brachial Position Sitting Pulse 60 Pulse Source Pulse Oximeter Temp 97.9 F Temp Source Oral Pulse Oximetry (%) 90 L Oxygen Delivery Method Room Air Intake Visit Reasons: EP Abcess Intake Note: Patient present with questionable abscess on L lower abdomen. Noticed it about 10 days ago and its been draining for 8 days Patient Tobacco Use Status: Current someday Tobacco user (Occasionally every 1-2 months when she has the craving) Allergies Cortisone Adverse Reaction (Unknown, Verified 09/15/24 08:53) leg turned black naproxen (From NAPROSYN) Adverse Reaction (Unknown, Verified 09/15/24 08:53) DEPRESSION , severe depression, extreme fatgue and drepression Do you need a note to return to daycare/school/sports/work: No HPI HPI Comments History of Present Illness Details History of Present Illness - The patient is a 68-year-old female presenting with an abscess in the left lower abdomen. - The abscess was initially noticed 10 days ago as a small, sensitive bump, which ruptured on the third day. - The drainage has continued for approximately eight days, with the patient changing dressings at home. - Currently, the abscess is completely drained and dry. - She is not able to see the area. - She denies fever, chills, bleeding, discharge, warmth, redness, or streaking. Physical Exam General: Cooperative, healthy appearing, comfortable, no acute distress and well developed Respiratory: Normal respiratory effort and able to speak in complete sentences. Clear to auscultation bilaterally Cardiovascular: Regular rate and rhythm. Normal S1 and S2 GI: Normal to inspection. Soft to palpation and nontender, obese. No guarding or rebound tenderness noted. Skin: No rashes or lesions noted, except for a closed, flat, scab abscess in the left lower abdomen, with no redness or fluctuance noted. No streaking noted. No induration noted. Patient was informed and verbally consented to the use of an ambient scribe for clinic note documentation during this visit. [facility] Medical History (Updated 07/19/24 @ 09:31 by Jeanette Palma MD) Impacted cerumen of both ears Localized swelling of both lower legs Obstructive sleep apnea Difficulty walking Morbid obesity Annual visit for general adult medical examination with abnormal findings Knee pain, right Change in vision Persistent cough for 3 weeks or longer 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 mass Osteopenia of left femoral neck Vitamin D deficiency Left wrist fracture Spondylosis of lumbar region without myelopathy or radiculopathy Distal radius fracture, left Psoriasis Adenomyosis of uterus Ventral hernia Fibromyalgia Environmental and seasonal allergies CHAS on CPAP Urinary, incontinence, stress female Osteoarthritis of knees, bilateral Hyperlipidemia Essential hypertension Surgical History H/O carpal tunnel repair Torn ACL History of total abdominal hysterectomy and bilateral salpingo-oophorectomy History of laparoscopic cholecystectomy Family History Father CAD (coronary artery disease) CVD (cardiovascular disease) Stroke Mother History of CVA (cerebrovascular accident) Brother No problems noted. Brother No problems noted. Son No problems noted. Social History Housing: House Alcohol intake: former Year quit: 2020 Patient Tobacco Use Status: Current someday Tobacco user (Occasionally every 1-2 months when she has the craving) Cigarettes Per Day: 2 Years Smoked: 40 +/- e-Cigarette/Vaping Use: Never Used Second Hand Smoke Exposure: Yes Substance Use Type: Marijuana Advance Directives Date on File: 02/28/20 Current occupational status: disabled Current occupation: rt handed Cognitive needs: No Hearing needs: No Vision needs: Yes Review of Systems Const All systems reviewed & are unremarkable except as noted in HPI and below Physical Exam Vital Signs: Last Vital Signs Temp 97.9 F 09/15/24 08:46 Pulse 60 09/15/24 08:46 BP 122/68 09/15/24 08:46 Pulse Ox 90 L 09/15/24 08:46 Oxygen Delivery Method Room Air 09/15/24 08:46 BMI result Body Mass Index 50.2 Assessment & Plan Assessment & Plan (1) Abscess of skin of abdomen: Code(s): L02.211 - Cutaneous abscess of abdominal wall Plan Most likely abscess, healing and drained No I&D indicated Plan - Monitor the site for any signs of infection such as increased redness, swelling, or pus formation. - Continue regular dressing changes to maintain cleanliness and prevent infection. Coding Level of Care Code Est Pt Level 3 (51579) Diagnoses Abscess of skin of abdomen L02.211
--- OUTSIDE RECORDS SUMMARY | 2024-09-15 09:07 | XMS_ITS | Clinical Summary ---
Author Organization [facility] it Address [address] [place] [address] Care Team Providers Care Billing Adjudicator Name Role Phone Fátima Smalls MD Primary Care Provider [phone] Social History Tobacco Use Types Packs/Day Years [...] age to complete this topic Care Teams Billing Adjudicator Relationship Specialty Start Date End Date Fátima Smalls MD PCP - General Internal Medicine 07/14/17
== END 2024-09-15 09:27 | disposition home or self-care (01) ==
PROVIDERS: PCP Internal Medicine; Visit Provider Physician Assistant Medical
DX: L02.211 Cutaneous abscess of abdominal wall (principal)

== ENCOUNTER → 2024-09-15 08:43 | Outpatient (BNVA) | payer MEDICARE, MEDICAID, SELFPAY | PROVIDERS: PCP Internal Medicine; Visit Provider Physician Assistant Medical | DX: L02.211 Cutaneous abscess of abdominal wall (principal) | CPT/HCPCS: 99212 ==

== ENCOUNTER 2024-11-23 09:21 | Outpatient (REF) | payer MEDICARE, MEDICAID, SELFPAY ==
[2024-11-23 14:17] LABS: Alanine Aminotransferase 15 U/L (0-31); Anion Gap 13 (12-20); Aspartate Amino Transferase 23 U/L (5-31); Blood Urea Nitrogen 15 mg/dL (9-16); Calcium 9.6 mg/dL (8.4-10.2); Carbon Dioxide 30 mmol/L (22-29); Chloride 101 mmol/L (96-108); Cholesterol 147 mg/dL (<200); Estimated Glomerular Filt Rate > 60; HDL Cholesterol 45 mg/dL (>40); Potassium 4.4 mmol/L (3.3-5.1); Sodium 140 mmol/L (135-145); Triglycerides 73 mg/dL (<150)
== END 2024-11-23 09:22 | disposition home or self-care (01) ==
LOC: HO.HMGCLDS 09:21
PROVIDERS: PCP Internal Medicine; Visit Provider Internal Medicine
DX: Z00.01 Encounter for general adult medical examination with abnormal findings (principal); I10 Essential (primary) hypertension; I25.10 Atherosclerotic heart disease of native coronary artery without angina pectoris; I25.84 Coronary atherosclerosis due to calcified coronary lesion; E78.5 Hyperlipidemia, unspecified; E66.01 Morbid (severe) obesity due to excess calories; N39.3 Stress incontinence (female) (male); M25.561 Pain in right knee; G47.33 Obstructive sleep apnea (adult) (pediatric); Z79.82 Long term (current) use of aspirin; Z79.899 Other long term (current) drug therapy; Z68.42 Body mass index [BMI] 45.0-49.9, adult
CPT/HCPCS: 36415; 80048; 80061; 82306; 84443; 84450; 84460; 99397

== ENCOUNTER 2024-11-23 09:21 | Outpatient (AMB) | payer MEDICARE, SELFPAY ==
--- OUTSIDE RECORDS SUMMARY | 2024-11-23 09:54 | XMS_ITS | Clinical Summary ---
Author Organization [facility] it Address [address] [place] [address] Care Team Providers Care Cmm Inspector Name Role Phone Fátima Smalls MD Primary Care Provider [phone] Social History Tobacco Use Types Packs/Day Years [...] Vaccine ( - 2023-2 5 season) 2023 Depression Screening 03/30/2024 Influenza Vaccine (#1) 2024 RSV Immunization Adult Patie nts (1 [...] age to complete this topic Care Teams Cmm Inspector Relationship Specialty Start Date End Date Fátima Smalls MD PCP - General Internal Medicine 07/14/17
[2024-11-23 10:00] VITALS: BP 124/72; PULSE 63; RESP 16; TEMP 36.7; O2SAT 94; BMI 49.8
--- NOTE | 2024-11-23 10:00 | A.OFFPC_ITS ---
Vital Signs 11/23/24 10:00 Height 5 ft 4 in Weight 290 lb BMI 49.8 BP 124/72 Blood Pressure Location Rt brachial Position Sitting Respiration 16 Pulse 63 Pulse Source Pulse Oximeter Temp 98.1 F Temp Source Oral Pulse Oximetry (%) 94 Oxygen Delivery Method Room Air Intake Visit Reasons: Annual PE Intake Note: Pt is here today for her PE: last mammogram 10/10/20, bone density scan 10/10/20 Allergies Cortisone Adverse Reaction (Unknown, Verified 11/23/24 10:22) leg turned black naproxen (From NAPROSYN) Adverse Reaction (Unknown, Verified 11/23/24 10:22) DEPRESSION , severe depression, extreme fatgue and drepression Medication List - Last Reconciled 11/23/24 by Jeanette Palma MD aspirin 81 mg PO DAILY atenolol 50 mg PO DAILY atorvastatin 40 mg PO DAILY cetirizine 10 mg PO DAILY PRN furosemide 20 mg PO QAM ibuprofen 800 mg PO DAILY PRN lisinopril 40 mg PO DAILY Tobacco use date assessed: 11/23/24 Fall risk assessment: No Falls in past year Last assessed Fall Risk: 11/23/24 Dental Screening Dental Screen Date: 11/23/24 Did you have a dental visit in the last 12 months?: No Did you have a dental problem in the last 6 months where you did not have access to dental care?: No Was dental information given to patient?: Patient declined HPI Annual PE HPI Details - The patient is a 60-year-old lady with history of hypertension, hyperlipidemia, obstructive sleep apnea, morbid obesity, arthritis and history urinary incontinence, here here today for physical exam. -she has Hypertension: . Blood pressure was noted to be stable during the visit. Currently takes atenolol 50 mg daily, and lisinopril 40 mg daily . .-has urinary incontinence already sched uled to see Urology 01/25/2025 -overdue to get her breast cancer screen ing and bone density screening test, last done in 2020 -Cologuard test was ordered last year bu t was not done. [facility] Medical History (Updated 11/29/24 @ 00:56 by Jeanette Palma MD) Localized swelling of both lower legs Obstructive sleep apnea Difficulty walking Morbid obesity Annual visit for general adult medical examination with abnormal findings Knee pain, right Change in vision Persistent cough for 3 weeks or longer 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 mass Osteopenia of left femoral neck Vitamin D deficiency Left wrist fracture Spondylosis of lumbar region without myelopathy or radiculopathy Distal radius fracture, left Psoriasis Adenomyosis of uterus Ventral hernia Fibromyalgia Environmental and seasonal allergies CHAS on CPAP Urinary, incontinence, stress female Osteoarthritis of knees, bilateral Hyperlipidemia Essential hypertension Surgical History H/O carpal tunnel repair Torn ACL History of total abdominal hysterectomy and bilateral salpingo-oophorectomy History of laparoscopic cholecystectomy Family History Father CAD (coronary artery disease) CVD (cardiovascular disease) Stroke Mother History of CVA (cerebrovascular accident) Brother No problems noted. Brother No problems noted. Son No problems noted. Social History Housing: House Alcohol intake: former Year quit: 2020 Patient Tobacco Use Status: Current someday Tobacco user (Occasionally every 1- 2 months when she has the craving) Cigarettes Per Day: 2 Years Smoked: 40 +/- e-Cigarette/Vaping Use: Never Used Second Hand Smoke Exposure: Yes Substance Use Type: Marijuana Advance Directives Date on File: 02/28/20 Current occupational status: disabled Current occupation: rt handed Cognitive needs: No Hearing needs: No Vision needs: Yes Questionnaire Thrive Questionnaire Date Thrive assessed: 09/25/22 LAZARO-7 AMB Questionnaire LAZARO-7 Date LAZARO - 7 assessed: 09/25/22 Source: Developed by Drs. Jsutin Lagunas, Bess Drew, Baldomero Vazquez and colleagues, with an educational blossom from [employer]. Review of Systems Const All systems reviewed & are unremarkable except as noted in HPI and below Eyes Details: Goes to [facility], beginning cataract seen ENT Denies dizziness Card Denies chest pain, Denies leg edema, Denies lightheadedness, Denies palpitations, Denies dyspnea and Reports dyspnea on exertion Resp Denies cough, Denies dyspnea and Reports dyspnea on exertion GI Denies hematochezia and Denies change in stool character Reports as per HPI Musc Details: knee pains, back discomfort Reports abnormal gait, Reports limited range of motion, Denies muscle cramps, Denies numbness and Denies stiffness Skin/Breast Denies breast pain and Denies breast mass Neuro Reports abnormal gait, Denies dizziness and Denies numbness Psych Reports no additional complaints Endo Denies palpitations Stephen/Lymph Reports no additional complaints Aller/Immun Reports no additional complaints Physical exam (Primary Care) Vital Signs: Last Vital Signs Temp 98.1 F 11/23/24 10:00 Pulse 63 11/23/24 10:00 Resp 16 11/23/24 10:00 BP 124/72 11/23/24 10:00 Pulse Ox 94 11/23/24 10:00 Oxygen Delivery Method Room Air 11/23/24 10:00 BMI result Body Mass Index 49.8 Tobacco/Smoking Status: Tobacco use Status Tobacco use date assessed 11/23/24 11/23/24 10:13 Patient Tobacco Use Status Current someday Tobacco ( 11/23/24 10:02 Occasionally every 1-2 months when she has the craving) e-Cigarette/Vaping Use Never Used 11/23/24 10:02 Thrive Assessment: Date of Thrive Assessment Date Thrive assessed 09/25/22 11/23/24 10:02 Const Other: Alert oriented x3, no acute distress ambulatory with slow gait Nutritional Appearance: obese Orientation/consciousness: patient oriented x3 HENMT Face and sinus: Yes face symmetric Mouth: Normal oral and palatal mucosa present, oropharynx normal and moist mucous membranes Eyes General: appearance normal, both eyes and all related structures Neck Other: Nonpalpable thyroid Neck: Yes full ROM, Yes no lymphadenopathy and Yes supple Resp Auscultation: diminished lung sounds Cardio Other: S1-S2 present regular rate and rhythm GI Other: Obese, soft, nontender no mass palpated Neuro General: patient oriented x3, moves all extremities and no focal motor deficits Extrem Other: Nonpitting 1+ swelling in both lower extremity, no calf tenderness Psych Appearance: grossly normal Mental Status: mental status grossly normal Speech and movement: Normal speech and movement present Affect: normal affect Results Reviewed Results Reviewed: Name: Belinda Dior Age/Sex: 68/F : 1955 Unit#: [id number] Attend Dr: Jeanette Palma MD Re07/19/24 Status: DEP [facility] Disch: SPEC : [id number] ISMA: 07/19/24 STATUS: COMP REQ : [id number] RECD: 07/19/24-[address]: Jeanette Palma MD COMP: 07/19/24 ENTERED: 07/19/[address]: ORDERED: CBC Auto Diff Test Result Flag Reference WBC 9.3 4.8-10.8 X10*3/uL RBC 5.62 H 4.20-5.50 X10*6/uL HGB 16.5 H 12.0-16.0 g/dl HCT 52.8 H 37.0-47.0 % MCV 94.0 80.0-98.0 fL MCH 29.4 27.0-33.0 pg MCHC 31.3 31.0-35.0 g/dl RDW 14.4 11.0-16.0 % PLT 152 L 160-400 X10*3/uL MPV 11.2 9.4-12.3 fL Neut Pct Auto 65.5 45-73 % ImGran Pct Auto 0.3 0.0-0.4 % Lymp Pct Auto 26.9 20-40 % Hudspeth Pct Auto 4.8 2-11 % Eos Pct Auto 2.2 0-4 % Baso Pct Auto 0.3 0-2 % NRBC Pct Auto 0.0 0.0-0.2 /100WBC ANC Neut Abs # 6.1 2.0-8.3 x10*3/uL ImGran Abs Auto 0.03 0.00-0.03 X10*3/uL Lymph Abs Auto 2.5 1.2-4.9 X10*3/uL Hudspeth Abs Auto 0.5 0.1-1.2 X10*3/uL Eos Abs Auto 0.2 0.0-0.4 X10*3/uL Baso Abs Auto 0.0 0.0-0.2 X10*3/uL NRBC Abs Auto 0.000 0.0-0.012 X10*3/uL Name: Belinda Dior Age/Sex: 68/F : 1955 Unit#: [id number] Attend Dr: Jeanette Palma MD Re07/19/24 Status: DEP REF Location: [facility] Disch: SPEC : [id number] ISMA: 07/19/24 STATUS: COMP REQ : [id number] RECD: 07/19/24-[address]: Jeanette Palma MD COMP: 07/19/24 ENTERED: 07/19/[address] [facility] DR: ORDERED: CMP Fast, Lipid Panel, Vitamin D 25-OH Test Result Flag Reference Sodium 147 H 135-145 mmol/L Potassium 4.3 3.3-5.1 mmol/L CL 108 96-108 mmol/L CO2 32 H 22-29 mmol/L Gap 11 L 12-20 BUN 13 9-16 mg/dL Creat 0.64 0.5-1.4 mg/dL eGFR > 60 Chronic Kidney Disease: Estimated GFR < 60 mL/min/1.73m2 Severe Kidney Disease: Estimated GFR < 15 mL/min/1.73m2 FBS 98 60-99 mg/dL CA 9.3 8.4-10.2 mg/dL Total Bili 1.7 H 0.0-1.0 mg/dL AST (GOT) 20 5-31 U/L ALT (GPT) 8 0-31 U/L Protein, Total 6.8 6.5-8.0 g/dL Alb 3.8 3.5-5.0 g/dL Triglyceride 81 <150 mg/dL Desirable Triglyceride: less than 150 mg/dL Borderline High Triglyceride 150-199 mg/dL High Triglyceride: 200-499 mg/dL Very High Triglyceride: greater than or equal to 5OO mg/dL Cholesterol 142 <200 mg/dL Desirable Cholesterol: less than 200 mg/dL Borderline High Cholesterol: 200-239 mg/dL High Cholesterol: greater than 239 mg/dL LDL Calculated 81 <100 mg/dL Desirable LDL: less than 100 mg/dL Near Optimal/Above Optimal LDL: 110-129 mg/dL Borderline High LDL: 130-159 mg/dL High LDL: 160-189 mg/dL Very High LDL: greater than or equal to 190 mg/dL HDL 45 >40 mg/dL Desirable HDL: greater than 40 mg/dL Note: This HDL assay may give artificially low results in patients with liver disease. Alk Phos 103 39-117 U/L Vitamin D 25-OH 39.7 >30 ng/mL Health Based Reference Values* < 20 ng/mL Deficient 20-30 ng/mL Insufficient > 30 ng/mL Sufficient Coding Level of Care Code Est Pt Prev Care >65y(79575) Diagnoses Annual visit for general adult medical examination with abnormal findings Z00.01 Essential hypertension I10 Hyperlipidemia E78.5 Coronary artery calcification I25.10; I25.84 Morbid obesity E66.01 Urinary, incontinence, stress female N39.3 Knee pain, right M25.561 Obstructive sleep apnea G47.33 Assessment & Plan Assessment & Plan (1) Annual visit for general adult medical examination with abnormal findings: Code(s): Z00.01 - Encounter for general adult medical examination with abnormal findings Category: Medical (2) Essential hypertension: Code(s): I10 - Essential (primary) hypertension Category: Medical (3) Hyperlipidemia: Code(s): E78.5 - Hyperlipidemia, unspecified Category: Medical (4) Coronary artery calcification: Code(s): I25.10 - 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; I25.84 - Coronary atherosclerosis due to calcified coronary lesion Category: Medical (5) Morbid obesity: Code(s): E66.01 - Morbid (severe) obesity due to excess calories Category: Medical (6) Urinary, incontinence, stress female: Code(s): N39.3 - Stress incontinence (female) (male) Category: Medical (7) Knee pain, right: Code(s): M25.561 - Pain in right knee Category: Medical (8) Obstructive sleep apnea: Code(s): G47.33 - Obstructive sleep apnea (adult) (pediatric) Category: Medical Plan Plan Patient was informed and verbally consented to the use of an ambient scribe for clinic note documentation during this visit. 1. Localized swelling, mass and lump, lower limb, bilateral R22.43 The patient reports improvement in leg swelling with the use of furosemide, although she experiences occasional decreased urine output. 2. 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 3. Other specified disorders of bone density and structure, unspecified thigh M85.859 The patient had bone thinning noted in 2020, and a follow-up bone density test is scheduled to monitor for osteoporosis. Fasting labs have been ordered to check lipids, electrolytes liver enzymes and vitamin-D level and thyroid levels. Bone density scan together with screening mammogram ordered A repeat Cologuard testing was ordered, as previous Cologuard ordered a year ago was not done. 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, I25.84 - Coronary atherosclerosis due to calcified coronary lesion, Z00.01 - Encounter for general adult medical examination with abnormal findings Basic Metabolic Panel Fasting 11/23/24 E66.01 - Morbid (severe) obesity due to excess calories, E78.5 - Hyperlipidemia, unspecified, I10 - Essential (primary) hypertension, I25.10 - 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, I25.84 - Coronary atherosclerosis due to calcified coronary lesion, Z00.01 - Encounter for general adult medical examination with abnormal findings Lipid Panel 11/23/24 E66.01 - Morbid (severe) obesity due to excess calories, E78.5 - Hyperlipidemia, unspecified, I10 - Essential (primary) hypertension, I25.10 - 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, I25.84 - Coronary atherosclerosis due to calcified coronary lesion, Z00.01 - Encounter for general adult medical examination with abnormal findings Vitamin D 25-OH Total 11/23/24 E66.01 - Morbid (severe) obesity due to excess calories, E78.5 - Hyperlipidemia, unspecified, I10 - Essential (primary) hypertension, I25.10 - 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, I25.84 - Coronary atherosclerosis due to calcified coronary lesion, Z00.01 - Encounter for general adult medical examination with abnormal findings TSH reflex Free T4 11/23/24 E66.01 - Morbid (severe) obesity due to excess calories, E78.5 - Hyperlipidemia, unspecified, I10 - Essential (primary) hypertension, I25.10 - 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, I25.84 - Coronary atherosclerosis due to calcified coronary lesion, Z00.01 - Encounter for general adult medical examination with abnormal findings XR DEXA axial skeleton 11/23/24 Z12.31 - Encounter for screening mammogram for malignant neoplasm of breast, Z78.0 - Asymptomatic menopausal state MM tomosynthesis screening BI 11/23/24 Z12.31 - Encounter for screening mammogram for malignant neoplasm of breast, Z78.0 - Asymptomatic menopausal state Alanine Aminotransferase 11/23/24 E66.01 - Morbid (severe) obesity due to excess calories, E78.5 - Hyperlipidemia, unspecified, I10 - Essential (primary) hypertension, I25.10 - 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, I25.84 - Coronary atherosclerosis due to calcified coronary lesion, Z00.01 - Encounter for general adult medical examination with abnormal findings Referrals Cologuard Test Z12.11 - Encounter for screening for malignant neoplasm of colon, Z12.12 - Encounter for screening for malignant neoplasm of rectum
== END 2024-11-23 10:47 | disposition home or self-care (01) ==
LOC: HO.HMCC 09:21
PROVIDERS: PCP Internal Medicine; Visit Provider Internal Medicine
DX: Z00.01 Encounter for general adult medical examination with abnormal findings (principal); I10 Essential (primary) hypertension; E66.01 Morbid (severe) obesity due to excess calories; Z68.42 Body mass index [BMI] 45.0-49.9, adult; E78.5 Hyperlipidemia, unspecified; I25.10 Atherosclerotic heart disease of native coronary artery without angina pectoris; I25.84 Coronary atherosclerosis due to calcified coronary lesion; N39.3 Stress incontinence (female) (male); M25.561 Pain in right knee; G47.33 Obstructive sleep apnea (adult) (pediatric)